=== PATIENT | male | born 1940 | race Caucasian/White ===

== ENCOUNTER → 2016-09-02 | Outpatient (CLI) | payer BC ==
[~2016-09-02] MED LIST: ASPCH81; MULT-506 PO; OXYC-57 PO; PRED20TA PO
--- NOTE | 2016-09-02 11:33 | DIAGNOSTIC IMAGING REPORT ---
LEFT LOWER EXTREMITY VENOUS DOPPLER CLINICAL HISTORY: Left leg edema. COMPARISON STUDY: No previous studies for comparison. TECHNIQUE: Sonography of the deep venous system of the left lower extremity was performed. Compression and augmentation were evaluated. FINDINGS: The left common femoral, superficial femoral and popliteal veins were compressible. Augmentation was normal. Flow was shown within the deep calf vessels. IMPRESSION: No evidence of deep venous thrombus within the left lower extremity. Electronically signed by: Demar Valdes M.D. 09/02/2016 11:31 AM Dictated Date/Time: 09/02/2016 11:30 AM
== END | disposition home or self-care (01) ==
LOC: C.ULTR 11:01
PROVIDERS: ATTEND Allergy & Immunology Allergy
DX: R60.0 Localized edema (principal)

== ENCOUNTER → 2016-10-04 | Outpatient (CLI) | payer BC ==
[2016-10-04 10:15] LABS: BASO % 1.1 %; BASO ABS # 0.05 K/uL (0-0.2); COMPLETE YES; HEMATOCRIT 45.3 % (42-52); IG% 0.4 %; LYMPH % 39.7 %; LYMPH ABS # 1.88 K/uL (1.2-3.4); MEAN CELL VOLUME 99.6 fL (80-100); MEAN CORPUSCULAR HEMOGLOBIN 34.3 pg (25-34); MEAN CORPUSCULAR HGB CONC 34.4 g/dl (32-36); MEAN PLATELET VOLUME 10.5 fL (7.4-10.4); MONO % 11.2 %; NEUT % 43.6 %; PLATELET COUNT 153 K/uL (130-400); RED BLOOD COUNT 4.55 M/uL (4.7-6.1); WHITE BLOOD COUNT 4.73 K/uL (4.8-10.8)
[2016-10-04 10:35] LABS: ESTIMATED AVERAGE GLUCOSE 105 mg/dl; HA1C FLAG Normal (Normal)
[2016-10-04 10:56] LABS: ALT/SGPT 21 U/L (12-78); BLOOD UREA NITROGEN 15 mg/dl (7-18); BUN/CREATININE RATIO 12.6 (10-20); CALCIUM 8.8 mg/dl (8.5-10.1); CARBON DIOXIDE 28 mmol/L (21-32); CHLORIDE 107 mmol/L (98-107); GLUCOSE 82 mg/dl (70-99); POTASSIUM 4.3 mmol/L (3.5-5.1); SODIUM 143 mmol/L (136-145)
[2016-10-04 11:07] LABS: ALB/GLOB RATIO 0.9 (0.9-2); ALKALINE PHOSPHATASE 70 U/L (45-117); AST/SGOT 15 U/L (15-37); CHOLESTEROL 170 mg/dl (0-200); CHOLESTEROL/HDL RATIO 3.5; HDL CHOLESTEROL 49 mg/dl; LDL CHOLESTEROL CALCULATED 108 mg/dl; PROSTATE SPECIFIC ANTIGEN 0.949 ng/ml (0.000-4.000); TRIGLYCERIDES 64 mg/dl (0-150); VERY LOW DENSITY LIPOPROT CALC 13 mg/dl
[2016-10-04 16:46] LABS: URINE APPEARANCE CLEAR (CLEAR); URINE BILIRUBIN NEG (NEG); URINE COLOR DK YELLOW; URINE EPITHELIAL CELL AUTO >30 /lpf (0-5); URINE NITRITE NEG (NEG); URINE SPECIFIC GRAVITY 1.025 (1.000-1.030); UROBILINOGEN NEG (NEG)
[2016-10-04 16:48] LABS: MANUAL MICROSCOPIC REQUIRED? NO; REVIEW REQ? NO
--- NOTE | 2016-10-08 09:22 | CODING QUERY MEDICAL NECESSITY ---
SUPPORTING DIAGNOSIS NEEDED A supporting diagnosis is required for the test/procedure performed on this patient in order for us to be reimbursed by the patient's insurance. Please provide a supporting diagnosis for the following test/procedure listed below next to the test name along with your signature. *If there is no additional diagnosis for this patient that would support the following test/procedure please document that below next to the test/procedure. Test(s)/Procedure(s) that require a supporting diagnosis: * GLYCATED HEMOGLOBIN DIAGNOSIS: * PSA DIAGNOSIS: * DOS: 10/04/16 Provider Signature: Date: Thank you Loraine Leavitt [facility] Information Management Once completed, please kindly fax back to [phone] For questions please call [phone]
== END | disposition home or self-care (01) ==
LOC: C.LAB1850 09:26
PROVIDERS: ATTEND Internal Medicine Pulmonary Disease
DX: Z00.00 Encounter for general adult medical examination without abnormal findings (principal); G62.9 Polyneuropathy, unspecified; I87.2 Venous insufficiency (chronic) (peripheral); R60.0 Localized edema; M70.60 Trochanteric bursitis, unspecified hip; Z12.5 Encounter for screening for malignant neoplasm of prostate

== ENCOUNTER → 2017-10-10 | Outpatient (CLI) | payer BC ==
[2017-10-10 12:14] LABS: BASO % 0.8 %; BASO ABS # 0.04 K/uL (0-0.2); EOS % 6.7 %; EOS ABS # 0.33 K/uL (0-0.5); HEMATOCRIT 47.6 % (42-52); HEMOGLOBIN 15.9 g/dL (14.0-18.0); IG# 0.01 K/uL (0.00-0.02); LYMPH % 38.1 %; LYMPH ABS # 1.88 K/uL (1.2-3.4); MEAN CELL VOLUME 101.3 fL (80-100); MEAN CORPUSCULAR HEMOGLOBIN 33.8 pg (25-34); MEAN CORPUSCULAR HGB CONC 33.4 g/dl (32-36); MEAN PLATELET VOLUME 10.7 fL (7.4-10.4); MONO % 8.7 %; MONO ABS # 0.43 K/uL (0.11-0.59); NEUT % 45.5 %; NEUT ABS # 2.25 K/uL (1.4-6.5); PLATELET COUNT 158 K/uL (130-400); RED CELL DISTRIBUTION WIDTH CV 13.6 % (11.5-14.5); RED CELL DISTRIBUTION WIDTH SD 50.6 fL (36.4-46.3); WHITE BLOOD COUNT 4.94 K/uL (4.8-10.8)
[2017-10-10 12:25] LABS: ALBUMIN 3.3 gm/dl (3.4-5.0); AST/SGOT 14 U/L (15-37); BLOOD UREA NITROGEN 14 mg/dl (7-18); CALCIUM 8.9 mg/dl (8.5-10.1); CARBON DIOXIDE 31 mmol/L (21-32); CREATININE 1.05 mg/dl (0.60-1.40); GLUCOSE 90 mg/dl (70-99); POTASSIUM 4.2 mmol/L (3.5-5.1); SODIUM 140 mmol/L (136-145)
[2017-10-10 12:30] LABS: ALKALINE PHOSPHATASE 97 U/L (45-117); ALT/SGPT 21 U/L (12-78); TOTAL PROTEIN 7.3 gm/dl (6.4-8.2)
[2017-10-10 12:49] LABS: HEMOGLOBIN A1C 5.3 % (4.5-5.6)
== END | disposition home or self-care (01) ==
LOC: C.LAB1850 09:51
PROVIDERS: ATTEND Internal Medicine Pulmonary Disease
DX: Z00.00 Encounter for general adult medical examination without abnormal findings (principal); G62.9 Polyneuropathy, unspecified; I87.2 Venous insufficiency (chronic) (peripheral); Z12.5 Encounter for screening for malignant neoplasm of prostate; R21 Rash and other nonspecific skin eruption

== ENCOUNTER 2023-01-05 12:52 | Inpatient (IN) ==
[2023-01-05] MEDS ORDERED: ACETAMINOPHEN 500 MG TAB PO STA (13:01)
[2023-01-05 13:32] LABS: Base Excess VBG 7.5 mEq/L; HCO3 VBG 33 mmol/L; Oxygen Saturation VBG < 60.0 %; PCO2 VBG 46 mmHg (38-50); PO2 VBG 21 mmHg; pH VBG 7.46 (7.36-7.41)
--- NOTE | 2023-01-05 13:39 | Electrocardiogram Report ---
Test Reason : Blood Pressure : / mmHG Vent. Rate : 099 BPM Atrial Rate : 099 BPM P-R Int : 190 ms QRS Dur : 108 ms QT Int : 332 ms P-R-T Axes : 014 -43 032 degrees QTc Int : 426 ms Normal sinus rhythm Left axis deviation Abnormal ECG When compared with ECG of 18-NOV-2011 11:55, No significant change was found Confirmed by Faheem Diop ([id number]) on 01/05/2023 1:38:41 PM Referred By: Confirmed By:Noel Diop
[2023-01-05 13:40] LABS: Basophils # (auto) 0.03 K/uL (0-0.2); Basophils % (auto) 0.4 %; Eosinophils # (auto) 0.01 K/uL (0-0.50); Eosinophils % (auto) 0.1 %; Hemoglobin 15.9 g/dl (14.0-18.0); Immature Granulocytes # (auto) 0.03 K/uL (0.01-0.20); Immature Granulocytes % (auto) 0.4 %; Lymphocytes # (auto) 0.64 K/uL (1.2-3.4); Lymphocytes % (auto) 9.1 %; Mean Corpuscular Hgb Conc 34.6 g/dL (32.0-36.0); Mean Corpuscular Volume 98.3 fL (80.0-100.0); Mean Platelet Volume 10.3 fL (9.4-12.4); Monocytes # (auto) 0.76 K/uL (0.11-0.59); Monocytes % (auto) 10.8 %; Neutrophils # (auto) 5.57 K/uL (1.40-6.50); Neutrophils % (auto) 79.2 %; Platelet Count 142 K/uL (130-400); RDW Standard Deviation 46.3 fL (36.4-46.3); Red Blood Count 4.68 M/uL (4.70-6.10); White Blood Count 7.04 K/ul (4.8-10.8)
--- NOTE | 2023-01-05 13:40 | Emergency Department Note ---
Impression & Plan Generalized muscle weakness, Delirium, Fever, Hypoxia, Fall, Elevated troponin I level, COVID-19 ED Provider Note NAME: SWETA PHILLIPS AGE: 82 SEX: M : 1940 ARRIVES VIA: Ambulance INFORMANT: Patient, ED PROVIDER(S): Hunter Barrera DO CHIEF COMPLAINT: Altered mental status HPI: Patient is an 82-year-old male who presented to the emergency department for an evaluation of altered mental status. The patient reportedly had a fall which was very minor. He became very weak and fell into a wall and then lowered himself to the ground. There was no reported head injury. There was no reported lower extremity pain. The patient himself does not offer any complaints but he seems very listless. He was found to have a fever upon triage vital signs. The patient himself states he has had a dry cough. He recently returned from a cruise. He denies having any nausea vomiting or diarrhea. He does complain of some diffuse abdominal pain. He denies having any headache or neck pain. ROS: See above HPI for pertinent positives & negatives. A total of 10 systems reviewed and were otherwise negative. PAST MEDICAL HISTORY: See Below PAST SURGICAL HISTORY: See Below FAMILY HISTORY: See Below SOCIAL HISTORY: See Below HOME MEDICATIONS: See Below ALLERGIES: See Below VITALS: See Below PHYSICAL EXAMINATION: GENERAL: The patient is awake to verbal commands. He is listless and answers questions slowly. He does not appear to be uncomfortable. EYES: The conjunctivae are clear. The pupils are round and reactive. EARS, NOSE, MOUTH AND THROAT: The nose is without any evidence of any deformity. Mucous membranes are dry. NECK: The neck is nontender and supple. RESPIRATORY: Normal respiratory effort is noted there is no evidence of wheezing rhonchi or rales CARDIOVASCULAR: Regular rate and rhythm noted there no murmurs rubs or gallops normal S1 normal S2. GASTROINTESTINAL: The abdomen is soft and distended. There is diffuse tenderness to palpation but no specific guarding rigidity. MUSCULOSKELETAL/EXTREMITIES: There is no evidence of gross deformity full range of motion is noted in the hips and shoulders. SKIN: Chronic venous stasis changes were noted. There is pedal edema bilaterally. Skin is warm and dry. NEUROLOGIC: Patient is awake to verbal commands. He is oriented to person as well as year. Strength is symmetric but diminished. MEDICAL DECISION MAKING: The patient is an 82-year-old male who presented to the emergency department after a fall. The patient had a ground-level fall but from description he actually became weak and slid down the wall. He had no significant trauma on my evaluation. The patient was found to have a fever. He was not speaking clearly at times. He was somewhat confused. He was treated with Tylenol and IV fluids. On reevaluation he was somewhat improved. He did complain of a cough which was nonproductive. The patient recently returned from a cruise. He had no GI complaints such as nausea vomiting or diarrhea. I discussed the patient's laboratory and radiographic studies with him. CT of the brain did not show any acute abnormality. After he was treated and his fever was improved he was speaking normally. Given the patient's findings CT of the chest was also obtained due to the degree of hypoxia. This does not appear to be consistent with pulmonary embolism. I do not feel the patient is safe for outpatient management at this time. For this reason I will [facility] T[facility] Nursing notes reviewed. Prior medical records reviewed Vital Signs: reviewed and remarkable for fever and hypoxia. Differential diagnosis: Infection, hypoglycemia, electrolyte abnormalities, overdose, toxicologic, cardiac sources, intracerebral event, neurologic, trauma, as well as other pathologies. ER treatment provided: See below Diagnostics interpreted by me: ECG: EKG was obtained in the emergency department. My interpretation is normal sinus rhythm at 99 bpm. There is no ectopy. There is no acute ST segment abnormalities noted. This was compared to a tracing from November 18, 2011. No changes were noted. Cardiac Monitoring: An order was placed for continuous cardiac monitoring. The monitor shows a rate of 98 bpm with sinus rhythm. Laboratory studies: As stated above and show below. Imaging studies: See below. Radiographic imaging was reviewed by myself Consultation(s): I discussed this case with Dr. Varma who is [facility]. Past Med/Surg History Medical History Chronic venous insufficiency Left thigh pain Osteoarthritis of left hip Peripheral neuropathy Stasis dermatitis Surgical History History of colonoscopy (~2019) History of foot surgery History of oral surgery History of tonsillectomy and adenoidectomy Family History Father Acute myocardial infarction Lung cancer Colon cancer Uncle Acute myocardial infarction Mother Brain cancer Brother Hypertension Tremor Social History Smoking Status: Never smoker marital status: Current Living Situation: Spouse Feels Safe at Home: Yes Allergies Allergies Allergy/AdvReac Type Severity Reaction Status Date / Time doxycycline Allergy Intermediate HIVES Verified 12/20/22 09:38 Home Meds Home Medications Medication Instructions Recorded Confirmed docusate sodium 100 mg capsule 100 mg PO DAILY 05/07/19 12/20/22 gabapentin 300 mg capsule 300 mg PO TID 01/05/23 01/05/23 Previous Rx's Medication Instructions Recorded triamterene 37.5 1 cap PO DAILY #90 caps 09/06/22 mg-hydrochlorothiazide 25 mg capsule nortriptyline 75 mg capsule See Rx Instructions .Route 09/17/22 .COMPLEX #90 caps Results & Data (ED) Vital Signs Vital Signs - 24 hr 01/05/23 13:14 01/05/23 12:31 01/05/23 12:31 Temperature 38.8 C H Temperature Source Oral Pulse Rate 98 H Pulse Rate [Apical] 97 H Pulse Rate from SpO2 Sensor Pulse Rhythm [Apical] Regular Respiratory Rate 22 Blood Pressure Blood Pressure [Left Arm] 168/104 H Blood Pressure Mean Blood Pressure Mean [Left Arm] 125 Pulse Oximetry 91 Oxygen Delivery Method Room Air Sepsis New/Unexplained Change in Mental Status Yes Sepsis Action Taken by Nursing No Action Required 01/05/23 13:31 01/05/23 14:16 01/05/23 13:05 Temperature Temperature Source Pulse Rate 102 H 98 H Pulse Rate [Apical] 91 H Pulse Rate from SpO2 Sensor 99 H Pulse Rhythm [Apical] Respiratory Rate 20 21 Blood Pressure Blood Pressure [Left Arm] 143/89 H Blood Pressure Mean Blood Pressure Mean [Left Arm] 107 Pulse Oximetry 93 94 92 Oxygen Delivery Method Room Air Room Air Sepsis New/Unexplained Change in Mental Status Sepsis Action Taken by Nursing 01/05/23 13:30 01/05/23 13:32 01/05/23 13:32 Temperature Temperature Source Pulse Rate 98 H 105 H Pulse Rate [Apical] Pulse Rate from SpO2 Sensor 93 H 104 H Pulse Rhythm [Apical] Respiratory Rate 19 20 Blood Pressure Blood Pressure [Left Arm] Blood Pressure Mean 199 Blood Pressure Mean [Left Arm] Pulse Oximetry 92 93 Oxygen Delivery Method Sepsis New/Unexplained Change in Mental Status Sepsis Action Taken by Nursing 01/05/23 14:13 01/05/23 14:13 01/05/23 14:30 Temperature Temperature Source Pulse Rate 95 H Pulse Rate [Apical] Pulse Rate from SpO2 Sensor 94 H 92 H Pulse Rhythm [Apical] Respiratory Rate 18 Blood Pressure 143/89 H Blood Pressure [Left Arm] Blood Pressure Mean 107 Blood Pressure Mean [Left Arm] Pulse Oximetry 88 L 92 Oxygen Delivery Method Sepsis New/Unexplained Change in Mental Status Sepsis Action Taken by Nursing 01/05/23 14:31 01/05/23 14:31 Temperature Temperature Source Pulse Rate 98 H Pulse Rate [Apical] Pulse Rate from SpO2 Sensor 98 H Pulse Rhythm [Apical] Respiratory Rate 24 Blood Pressure 113/84 Blood Pressure [Left Arm] Blood Pressure Mean 93 Blood Pressure Mean [Left Arm] Pulse Oximetry 80 L Oxygen Delivery Method Sepsis New/Unexplained Change in Mental Status Sepsis Action Taken by Snf Medications Current Medication List: was personally reviewed by me Laboratory Data Attestation: I reviewed the patient's lab results. 01/05/23 13:15 01/05/23 13:15 Lab Results 01/05/23 01/05/23 01/05/23 Range/Units 13:15 13:15 13:15 WBC 7.04 (4.8-10.8) K/ul RBC 4.68 L (4.70-6.10) M/uL Hgb 15.9 (14.0-18.0) g/dl Hct 46.0 (42.0-52.0) % MCV 98.3 (80.0-100.0) fL MCH 34.0 (25.0-34.0) pg MCHC 34.6 (32.0-36.0) g/dL RDW Std Deviation 46.3 (36.4-46.3) fL RDW Coeff of Jasiel 13.0 (11.5-14.5) % Plt Count 142 (130-400) K/uL MPV 10.3 (9.4-12.4) fL Immature Gran % (Auto) 0.4 % Neut % (Auto) 79.2 % Lymph % (Auto) 9.1 % [place] % (Auto) 10.8 % Eos % (Auto) 0.1 % Baso % (Auto) 0.4 % Neut # (Auto) 5.57 (1.40-6.50) K/uL Lymph # (Auto) 0.64 L (1.2-3.4) K/uL [place] # (Auto) 0.76 H (0.11-0.59) K/uL Eos # (Auto) 0.01 (0-0.50) K/uL Baso # (Auto) 0.03 (0-0.2) K/uL Immature Gran # (Auto) 0.03 (0.01-0.20) K/uL PT 12.6 H (9.0-12.0) Seconds INR 1.2 H (0.9-1.1) APTT 29.9 (21.0-31.0) Seconds PTT Ratio 1.1 VBG pH (7.36-7.41) VBG pCO2 (38-50) mmHg VBG pO2 mmHg VBG HCO3 mmol/L VBG O2 Saturation % VBG Base Excess mEq/L Sodium 137 (136-145) mmol/L Potassium 3.7 (3.5-5.1) mmol/L Chloride 100 (98-107) mmol/L Carbon Dioxide 30 (21-32) mmol/L Anion Gap 7 (3-11) BUN 18 (6-23) mg/dl Creatinine 1.04 (0.6-1.4) mg/dl Est Cr Clr Drug Dosing 55.7 ml/min Est GFR ( Amer) 77.7 ml/min Est GFR (Non-Af Amer) 67.0 ml/min BUN/Creatinine Ratio 17.3 (10-20) Glucose 89 (70-99(Fasting)) mg/dl Lactate (0.4-2.0) mmol/L Calcium 9.3 (8.6-10.3) mg/dl Magnesium 1.7 (1.7-2.4) mg/dl Total Bilirubin 0.7 (0.2-1.0) mg/dl Direct Bilirubin 0.2 (0-0.2) mg/dl AST 26 (13-39) U/L ALT 20 (7-52) U/L Alkaline Phosphatase 70 (34-104) U/L Ammonia (18-72) umol/L Troponin I High Sens 38.2 H (0-20) pg/ml Total Protein 7.2 (6.0-8.3) gm/dl Albumin 3.8 (3.4-5.0) gm/dl Procalcitonin (0-0.5) ng/ml Urine Color Urine Appearance (Clear) Urine pH (4.5-7.5) Ur Specific [place] (1.000-1.030) Urine Protein (Negative) Urine Glucose (UA) (Negative) Urine Ketones (Negative) Urine Blood (Negative) Urine Nitrite (Negative) Urine Bilirubin (Negative) Urine Urobilinogen (Negative) Ur Leukocyte Esterase (Negative) Urine WBC (Auto) (0-5) /hpf Urine RBC (Auto) (0-4) /hpf U Hyaline Cast (Auto) (0-5) /lpf U Epithel Cells (Auto) (0-5) /lpf Urine Bacteria (Auto) (Negative) Salicylates (3.0-30) mg/dl Urine Opiates Screen (Neg) Ur Methadone, Qual (Neg) Acetaminophen (10-30) ug/ml Urine Barbiturates (Neg) Ur Phencyclidine (PCP) (Neg) U Amphetamin/Meth Scrn (Neg) MDMA (Ecstasy) Screen (Neg) U Benzodiazepines Scrn (Neg) Ur Cocaine Metabolite (Neg) U Marijuana (THC) Screen (Neg) Ethyl Alcohol mg/dL (<10.0) mg/dl 01/05/23 01/05/23 01/05/23 Range/Units 13:15 13:15 13:15 WBC (4.8-10.8) K/ul RBC (4.70-6.10) M/uL Hgb (14.0-18.0) g/dl Hct (42.0-52.0) % MCV (80.0-100.0) fL MCH (25.0-34.0) pg MCHC (32.0-36.0) g/dL RDW Std Deviation (36.4-46.3) fL RDW Coeff of Jasiel (11.5-14.5) % Plt Count (130-400) K/uL MPV (9.4-12.4) fL Immature Gran % (Auto) % Neut % (Auto) % Lymph % (Auto) % [place] % (Auto) % Eos % (Auto) % Baso % (Auto) % Neut # (Auto) (1.40-6.50) K/uL Lymph # (Auto) (1.2-3.4) K/uL [place] # (Auto) (0.11-0.59) K/uL Eos # (Auto) (0-0.50) K/uL Baso # (Auto) (0-0.2) K/uL Immature Gran # (Auto) (0.01-0.20) K/uL PT (9.0-12.0) Seconds INR (0.9-1.1) APTT (21.0-31.0) Seconds PTT Ratio VBG pH 7.46 H (7.36-7.41) VBG pCO2 46 (38-50) mmHg VBG pO2 21 mmHg VBG HCO3 33 mmol/L VBG O2 Saturation < 60.0 % VBG Base Excess 7.5 mEq/L Sodium (136-145) mmol/L Potassium (3.5-5.1) mmol/L Chloride (98-107) mmol/L Carbon Dioxide (21-32) mmol/L Anion Gap (3-11) BUN (6-23) mg/dl Creatinine (0.6-1.4) mg/dl Est Cr Clr Drug Dosing ml/min Est GFR ( Amer) ml/min Est GFR (Non-Af Amer) ml/min BUN/Creatinine Ratio (10-20) Glucose (70-99(Fasting)) mg/dl Lactate 1.6 (0.4-2.0) mmol/L Calcium (8.6-10.3) mg/dl Magnesium (1.7-2.4) mg/dl Total Bilirubin (0.2-1.0) mg/dl Direct Bilirubin (0-0.2) mg/dl AST (13-39) U/L ALT (7-52) U/L Alkaline Phosphatase (34-104) U/L Ammonia (18-72) umol/L Troponin I High Sens (0-20) pg/ml Total Protein (6.0-8.3) gm/dl Albumin (3.4-5.0) gm/dl Procalcitonin < 0.05 (0-0.5) ng/ml Urine Color Urine Appearance (Clear) Urine pH (4.5-7.5) Ur Specific [place] (1.000-1.030) Urine Protein (Negative) Urine Glucose (UA) (Negative) Urine Ketones (Negative) Urine Blood (Negative) Urine Nitrite (Negative) Urine Bilirubin (Negative) Urine Urobilinogen (Negative) Ur Leukocyte Esterase (Negative) Urine WBC (Auto) (0-5) /hpf Urine RBC (Auto) (0-4) /hpf U Hyaline Cast (Auto) (0-5) /lpf U Epithel Cells (Auto) (0-5) /lpf Urine Bacteria (Auto) (Negative) Salicylates (3.0-30) mg/dl Urine Opiates Screen (Neg) Ur Methadone, Qual (Neg) Acetaminophen (10-30) ug/ml Urine Barbiturates (Neg) Ur Phencyclidine (PCP) (Neg) U Amphetamin/Meth Scrn (Neg) MDMA (Ecstasy) Screen (Neg) U Benzodiazepines Scrn (Neg) Ur Cocaine Metabolite (Neg) U Marijuana (THC) Screen (Neg) Ethyl Alcohol mg/dL (<10.0) mg/dl 01/05/23 01/05/23 01/05/23 Range/Units 13:15 13:15 13:15 WBC (4.8-10.8) K/ul RBC (4.70-6.10) M/uL Hgb (14.0-18.0) g/dl Hct (42.0-52.0) % MCV (80.0-100.0) fL MCH (25.0-34.0) pg MCHC (32.0-36.0) g/dL RDW Std Deviation (36.4-46.3) fL RDW Coeff of Jasiel (11.5-14.5) % Plt Count (130-400) K/uL MPV (9.4-12.4) fL Immature Gran % (Auto) % Neut % (Auto) % Lymph % (Auto) % [place] % (Auto) % Eos % (Auto) % Baso % (Auto) % Neut # (Auto) (1.40-6.50) K/uL Lymph # (Auto) (1.2-3.4) K/uL [place] # (Auto) (0.11-0.59) K/uL Eos # (Auto) (0-0.50) K/uL Baso # (Auto) (0-0.2) K/uL Immature Gran # (Auto) (0.01-0.20) K/uL PT (9.0-12.0) Seconds INR (0.9-1.1) APTT (21.0-31.0) Seconds PTT Ratio VBG pH (7.36-7.41) VBG pCO2 (38-50) mmHg VBG pO2 mmHg VBG HCO3 mmol/L VBG O2 Saturation % VBG Base Excess mEq/L Sodium (136-145) mmol/L Potassium (3.5-5.1) mmol/L Chloride (98-107) mmol/L Carbon Dioxide (21-32) mmol/L Anion Gap (3-11) BUN (6-23) mg/dl Creatinine (0.6-1.4) mg/dl Est Cr Clr Drug Dosing ml/min Est GFR ( Amer) ml/min Est GFR (Non-Af Amer) ml/min BUN/Creatinine Ratio (10-20) Glucose (70-99(Fasting)) mg/dl Lactate (0.4-2.0) mmol/L Calcium (8.6-10.3) mg/dl Magnesium (1.7-2.4) mg/dl Total Bilirubin (0.2-1.0) mg/dl Direct Bilirubin (0-0.2) mg/dl AST (13-39) U/L ALT (7-52) U/L Alkaline Phosphatase (34-104) U/L Ammonia 20.0 (18-72) umol/L Troponin I High Sens (0-20) pg/ml Total Protein (6.0-8.3) gm/dl Albumin (3.4-5.0) gm/dl Procalcitonin (0-0.5) ng/ml Urine Color Urine Appearance (Clear) Urine pH (4.5-7.5) Ur Specific [place] (1.000-1.030) Urine Protein (Negative) Urine Glucose (UA) (Negative) Urine Ketones (Negative) Urine Blood (Negative) Urine Nitrite (Negative) Urine Bilirubin (Negative) Urine Urobilinogen (Negative) Ur Leukocyte Esterase (Negative) Urine WBC (Auto) (0-5) /hpf Urine RBC (Auto) (0-4) /hpf U Hyaline Cast (Auto) (0-5) /lpf U Epithel Cells (Auto) (0-5) /lpf Urine Bacteria (Auto) (Negative) Salicylates < 3.0 L (3.0-30) mg/dl Urine Opiates Screen (Neg) Ur Methadone, Qual (Neg) Acetaminophen < 3 L (10-30) ug/ml Urine Barbiturates (Neg) Ur Phencyclidine (PCP) (Neg) U Amphetamin/Meth Scrn (Neg) MDMA (Ecstasy) Screen (Neg) U Benzodiazepines Scrn (Neg) Ur Cocaine Metabolite (Neg) U Marijuana (THC) Screen (Neg) Ethyl Alcohol mg/dL < 10.0 (<10.0) mg/dl 01/05/23 01/05/23 Range/Units 14:47 14:47 WBC (4.8-10.8) K/ul RBC (4.70-6.10) M/uL Hgb (14.0-18.0) g/dl Hct (42.0-52.0) % MCV (80.0-100.0) fL MCH (25.0-34.0) pg MCHC (32.0-36.0) g/dL RDW Std Deviation (36.4-46.3) fL RDW Coeff of Jaseil (11.5-14.5) % Plt Count (130-400) K/uL MPV (9.4-12.4) fL Immature Gran % (Auto) % Neut % (Auto) % Lymph % (Auto) % [place] % (Auto) % Eos % (Auto) % Baso % (Auto) % Neut # (Auto) (1.40-6.50) K/uL Lymph # (Auto) (1.2-3.4) K/uL [place] # (Auto) (0.11-0.59) K/uL Eos # (Auto) (0-0.50) K/uL Baso # (Auto) (0-0.2) K/uL Immature Gran # (Auto) (0.01-0.20) K/uL PT (9.0-12.0) Seconds INR (0.9-1.1) APTT (21.0-31.0) Seconds PTT Ratio VBG pH (7.36-7.41) VBG pCO2 (38-50) mmHg VBG pO2 mmHg VBG HCO3 mmol/L VBG O2 Saturation % VBG Base Excess mEq/L Sodium (136-145) mmol/L Potassium (3.5-5.1) mmol/L Chloride (98-107) mmol/L Carbon Dioxide (21-32) mmol/L Anion Gap (3-11) BUN (6-23) mg/dl Creatinine (0.6-1.4) mg/dl Est Cr Clr Drug Dosing ml/min Est GFR ( Amer) ml/min Est GFR (Non-Af Amer) ml/min BUN/Creatinine Ratio (10-20) Glucose (70-99(Fasting)) mg/dl Lactate (0.4-2.0) mmol/L Calcium (8.6-10.3) mg/dl Magnesium (1.7-2.4) mg/dl Total Bilirubin (0.2-1.0) mg/dl Direct Bilirubin (0-0.2) mg/dl AST (13-39) U/L ALT (7-52) U/L Alkaline Phosphatase (34-104) U/L Ammonia (18-72) umol/L Troponin I High Sens (0-20) pg/ml Total Protein (6.0-8.3) gm/dl Albumin (3.4-5.0) gm/dl Procalcitonin (0-0.5) ng/ml Urine Color Yellow Urine Appearance Clear (Clear) Urine pH 6.5 (4.5-7.5) Ur Specific [place] 1.017 (1.000-1.030) Urine Protein Trace H (Negative) Urine Glucose (UA) Negative (Negative) Urine Ketones 2+ H (Negative) Urine Blood 2+ H (Negative) Urine Nitrite Negative (Negative) Urine Bilirubin Negative (Negative) Urine Urobilinogen Negative (Negative) Ur Leukocyte Esterase Negative (Negative) Urine WBC (Auto) 1-5 (0-5) /hpf Urine RBC (Auto) 0-4 (0-4) /hpf U Hyaline Cast (Auto) 0 (0-5) /lpf U Epithel Cells (Auto) 10-20 H (0-5) /lpf Urine Bacteria (Auto) Negative (Negative) Salicylates (3.0-30) mg/dl Urine Opiates Screen Neg (Neg) Ur Methadone, Qual Neg (Neg) Acetaminophen (10-30) ug/ml Urine Barbiturates Neg (Neg) Ur Phencyclidine (PCP) Neg (Neg) U Amphetamin/Meth Scrn Neg (Neg) MDMA (Ecstasy) Screen Neg (Neg) U Benzodiazepines Scrn Neg (Neg) Ur Cocaine Metabolite Neg (Neg) U Marijuana (THC) Screen Neg (Neg) Ethyl Alcohol mg/dL (<10.0) mg/dl Administered Medications Discontinued Medications Acetaminophen (Acetaminophen 500 Mg Tab) 1,000 mg PO NOW STA Stop: 01/05/23 13:02 Last Admin: 01/05/23 13:55 Dose: 1,000 mg Documented By: CLAUDIA Ioversol (Optiray 320 500ml) 98 ml IV ONCE ONE Stop: 01/05/23 16:11 Last Admin: 01/05/23 16:06 Dose: 98 ml Documented By: ROSA Imaging Data Attestation: I personally reviewed and interpreted this imaging study as follows: My Impression: 1 view chest x-ray was obtained in the emergency department. My interpretation is no free air, no definite infiltrate, final report below. CT of the head was obtained in the emergency department. My interpretation is no intracranial hemorrhage, no mass effect, final report below. Radiologist's Impression: Abdomen/Pelvis CT 01/05/23 13:[address] WITHOUT CONTRAST HISTORY: Acute onset abdominal pain with fever fever, distended TECHNIQUE: Multiaxial CT images of the abdomen and pelvis were performed without contrast. A dose lowering technique was utilized adhering to the principles of ALARA. COMPARISON STUDY: 02/09/2008 FINDINGS: Limited exam secondary to predominantly positioning and lack of c ontrast. Cardiac megaly with diffuse dilation of the ascending thoracic aorta, 5 cm. Coronary artery calcifications. Mild bibasilar atelectasis. No pneumatosis or pneumoperitoneum. The unenhanced spleen, moderately atrophic pancreas, gallbladder and adrenal glands are unremarkable. 4.6 cm right hepatic lobe cyst. No hydronephrosis. Mild cortical thinning of the kidneys. Prostatomegaly. Small fat filled inguinal hernias. Partial distention of the urinary bladder. Atheros clerosis of the aorta. There is no lymphadenopathy. No retroperitoneal hematoma. No bowel obstruction or bowel wall thickening. Colonic diverticulosis. Moderate fecal retention. Normal appendix. No ascites or mesenteric inflammation. Degenerative changes of the spine, pelvis and hips. No acute fracture identified. IMPRESSION: 1. Limited exam without acute intra-abdominal or intrapelvic abnormality. 2. No acute fracture. 3. Incidental findings as above. ACT 112: Negative or not required by law. The above report was generated using voice recognition software. It may contain grammatical, syntax or spelling errors. Electronically signed by: Kodak Lawson M.D. 01/05/2023 2:[address] 01/05/23 13:01 CT cervical spine wo con CLINICAL HISTORY: 82 years-old Male with fall. Acute head and neck injury status post fall COMPARISON: None. TECHNIQUE: Multiple axial CT images of the cervical spine were obtained without contrast. A dose lowering technique was utilized adhering to the principles of ALARA. FINDINGS: Multilevel degenerative changes. Nuchal ligament calcifications. Ill- defined linear lucency is noted within the spinous process at C6 on image 33 series 501. The cervical soft tissues appear unremarkable. The visualized lung apices appear clear. IMPRESSION: 1. No acute displaced fracture identified. 2. Ill-defined lucency of the C6 spinous process is likely artifactual. A subtle acute nondisplaced fracture could appear similarly. ACT 112: Negative or not required by law. The above report was generated using voice recognition software. It may contain grammatical, syntax or spelling errors. Electronically signed by: Kodak Lawson M.D. 01/05/2023 2:25 PM Chest X-Ray 01/05/23 13:01 XR chest 1V portable HISTORY: 82 years-old Male Sepsis give sepsis COMPARISON: 12/20/2022 TECHNIQUE: AP view of the chest FINDINGS: Cardiac silhouette is enlarged. No pneumothorax, pleural effusion, airspace consolidation or pulmonary edema. Degenerative changes of the shoulders and spine. IMPRESSION: No acute process. ACT 112: Negative or not required by law. The above report was generated using voice recognition software. It may contain grammatical, syntax or spelling errors. Electronically signed by: Kodak Lawson M.D. 01/05/2023 2:[address] 01/05/23 13:01 CT SCAN OF THE BRAIN WITHOUT IV CONTRAST CLINICAL HISTORY: Falls. COMPARISON STUDY: No priors. TECHNIQUE: Unenhanced axial CT scan of the brain is performed from the vertex to the skull base. A dose lowering technique was utilized adhering to the principles of ALARA. CT DOSE: 2301.23 mGy.cm FINDINGS: Brain parenchyma: There is age-related involutional change noting moderate subcortical and periventricular microangiopathic disease. There is no hemorrhage, mass effect, or evidence of acute territorial ischemia by CT criteria. Perez-white matter differentiation is preserved. No extra-axial fluid collection is seen. Ventricles, sulci, cisterns: Prominent secondary to involutional change. Intracranial vasculature: There is atherosclerotic calcification of the cavernous carotid and vertebral arteries. Calvarium: The skeletal structures are osteopenic. No depressed calvarial fracture is seen. Sinuses and mastoids: There are air-fluid levels within the maxillary sinuses. The remaining visualized paranasal sinuses are clear. The mastoid air cells are well pneumatized. Orbits: The bony orbits are grossly intact. There are bilateral ocular lens implants. IMPRESSION: There is no hemorrhage, mass effect, or evidence of acute territoria l ischemia by CT criteria. ACT 112: Negative or not required by law. Electronically signed by: Zach Bruce M.D. 01/05/2023 2:23 PM Chest CTA 01/05/23 15:26 CT angio chest PE protocol CLINICAL HISTORY: PE TECHNIQUE: Multidetector row helical CT of the chest was performed with angiographic protocol. Coronal and sagittal reformations were obtained. Coronal and sagittal MIPS were obtained from the axial data set and were submitted for review. Automated dose lowering techniques and/or adjustment according to patient size were utilized for this exam. CT DOSE: 804.87 mGy.cm Comparison: None available at the time of this dictation. FINDINGS: Lungs and pleura: Atelectasis versus scarring is seen in the dependent portions of the lungs. There is a 5 mm pulmonary nodule in the right lower lobe (series 4 image 82). Heart and pericardium: Heart size is normal. No pericardial effusion. Vessels: No evidence of pulmonary embolism. The ascending aorta measures 47 mm in diameter. The pulmonary trunk measures 34 mm. Mediastinum and fercho: Unremarkable. Chest wall and lower neck: Unremarkable. Abdomen: Hepatic cyst is seen. Bones: Degenerative changes of the thoracic spine. Old healed rib fractures are seen. IMPRESSION: 1. No pulmonary embolus is seen. 2. Pulmonary nodules measure up to 5 mm. According to Fleischner criteria, no follow-up is required in low risk patients, in high-risk patients, a 12 month follow-up CT can be optionally performed. 3. Aortic aneurysm. Pulmonary hypertension. ACT 112: Negative or not required by law. Electronically signed by: Isiah Rodriguez M.D. 01/05/2023 4:23 PM Discharge Plan Visit Data Chief Complaint: Fall Stated Complaint: FALL ED Provider: Hunter Barrera Discharge Problem: Generalized muscle weakness, Delirium, Fever, Hypoxia, Fall, Elevated troponin I level, COVID-19 Forms Stand Alone Forms: [employer] Prescriptions Prescriptions: No Action triamterene-hydrochlorothiazid 37.5-25 mg capsule 1 cap PO DAILY Qty: 90 3RF nortriptyline 75 mg capsule See Rx Instructions .ROUTE .COMPLEX Qty: 90 3RF Dose Instruction: TAKE 1 CAPSULE BY MOUTH 2-3 HOURS BEFORE BEDTIME Rx Instructions: TAKE 1 CAPSULE BY MOUTH 2-3 HOURS BEFORE BEDTIME docusate sodium 100 mg capsule 100 mg PO DAILY gabapentin 300 mg capsule 300 mg PO TID Referrals Referrals: Joshua Allen MD [Primary Care Provider] -
[2023-01-05 13:51] LABS: INR 1.2 (0.9-1.1); Partial Thromboplastin Ratio 1.1; Partial Thromboplastin Time 29.9 Seconds (21.0-31.0); Prothrombin Time 12.6 Seconds (9.0-12.0)
[2023-01-05 13:57] LABS: Albumin Level 3.8 gm/dl (3.4-5.0); Bilirubin Direct 0.2 mg/dl (0-0.2); Bilirubin,Total 0.7 mg/dl (0.2-1.0); Calcium 9.3 mg/dl (8.6-10.3); Magnesium 1.7 mg/dl (1.7-2.4); Potassium 3.7 mmol/L (3.5-5.1)
[2023-01-05 14:03] LABS: Acetaminophen < 3 ug/ml (10-30); BUN Creatinine Ratio 17.3 (10-20); Creatinine Clr Calc Pharmacy 55.7 ml/min; Est GFR (African American) 77.7 ml/min; Salicylate < 3.0 mg/dl (3.0-30); Total Protein 7.2 gm/dl (6.0-8.3)
[2023-01-05 14:20] LABS: Influenza A virus by PCR Negative (Neg); Influenza B virus by PCR Negative (Neg); RSV by PCR Negative (Neg)
--- NOTE | 2023-01-05 14:25 | CT Scan Report ---
CT SCAN OF THE BRAIN WITHOUT IV CONTRAST CLINICAL HISTORY: Falls. COMPARISON STUDY: No priors. TECHNIQUE: Unenhanced axial CT scan of the brain is performed from the vertex to the skull base. A do se lowering technique was utilized adhering to the principles of ALARA. CT DOSE: 2301.23 mGy.cm FINDINGS: Brain parenchyma: There is age-related involutional change noting moderate subcortical and periventri cular microangiopathic disease. There is no hemorrhage, mass effect, or evidence of acute territorial ischemia by CT criteria. Perez-white matter differentiation is preserved. No extra-axial fluid collec tion is seen. Ventricles, sulci, cisterns: Prominent secondary to involutional change. Intracranial vasculature: There is atherosclerotic calcification of the cavernous carotid and vertebr al arteries. Calvarium: The skeletal structures are osteopenic. No depressed calvarial fracture is seen. Sinuses and mastoids: There are air-fluid levels within the maxillary sinuses. The remaining visualiz ed paranasal sinuses are clear. The mastoid air cells are well pneumatized. Orbits: The bony orbits are grossly intact. There are bilateral ocular lens implants. IMPRESSION: There is no hemorrhage, mass effect, or evidence of acute territorial ischemia by CT daniel islas. ACT 112: Negative or not required by law. Electronically signed by: Zach Bruce M.D. 01/05/2023 2:23 PM
[2023-01-05 14:26] LABS: Troponin I High Sensitivity 38.2 pg/ml (0-20)
--- NOTE | 2023-01-05 14:26 | CT Scan Report ---
CT cervical spine wo con CLINICAL HISTORY: 82 years-old Male with fall. Acute head and neck injury status post fall COMPARISON: None. TECHNIQUE: Multiple axial CT images of the cervical spine were obtained without contrast. A dose low ering technique was utilized adhering to the principles of ALARA. FINDINGS: Multilevel degenerative changes. Nuchal ligament calcifications. Ill-defined linear lucency is noted within the spinous process at C6 on image 33 series 501. The cervical soft tissues appear u nremarkable. The visualized lung apices appear clear. IMPRESSION: 1. No acute displaced fracture identified. 2. Ill-defined lucency of the C6 spinous process is likely artifactual. A subtle acute nondisplaced f racture could appear similarly. ACT 112: Negative or not required by law. The above report was generated using voice recognition software. It may contain grammatical, syntax o r spelling errors. Electronically signed by: Kodak Lawson M.D. 01/05/2023 2:25 PM
--- NOTE | 2023-01-05 14:42 | CT Scan Report ---
ABDOMEN AND PELVIS CT WITHOUT CONTRAST HISTORY: Acute onset abdominal pain with fever fever, distended TECHNIQUE: Multiaxial CT images of the abdomen and pelvis were performed without contrast. A dose lo wering technique was utilized adhering to the principles of ALARA. COMPARISON STUDY: 02/09/2008 FINDINGS: Limited exam secondary to predominantly positioning and lack of contrast. Cardiac megaly wi th diffuse dilation of the ascending thoracic aorta, 5 cm. Coronary artery calcifications. Mild bibas ilar atelectasis. No pneumatosis or pneumoperitoneum. The unenhanced spleen, moderately atrophic panc reas, gallbladder and adrenal glands are unremarkable. 4.6 cm right hepatic lobe cyst. No hydronephrosis. Mild cortical thinning of the kidneys. Prostatomegaly. Small fat filled inguinal h ernias. Partial distention of the urinary bladder. Atherosclerosis of the aorta. There is no lymphade nopathy. No retroperitoneal hematoma. No bowel obstruction or bowel wall thickening. Colonic diverticulosis. Moderate fecal retention. Norm al appendix. No ascites or mesenteric inflammation. Degenerative changes of the spine, pelvis and hip s. No acute fracture identified. IMPRESSION: 1. Limited exam without acute intra-abdominal or intrapelvic abnormality. 2. No acute fracture. 3. Incidental findings as above. ACT 112: Negative or not required by law. The above report was generated using voice recognition software. It may contain grammatical, syntax o r spelling errors. Electronically signed by: Kodak Lawson M.D. 01/05/2023 2:41 PM
--- NOTE | 2023-01-05 14:44 | XRay Report ---
XR chest 1V portable HISTORY: 82 years-old Male Sepsis give sepsis COMPARISON: 12/20/2022 TECHNIQUE: AP view of the chest FINDINGS: Cardiac silhouette is enlarged. No pneumothorax, pleural effusion, airspace consolidation or pulmonar y edema. Degenerative changes of the shoulders and spine. IMPRESSION: No acute process. ACT 112: Negative or not required by law. The above report was generated using voice recognition software. It may contain grammatical, syntax o r spelling errors. Electronically signed by: Kodak Lawson M.D. 01/05/2023 2:43 PM
[2023-01-05 15:09] LABS: Appearance Urine Clear (Clear); Bacteria Urine Automated Negative (Negative); Bilirubin Urine Negative (Negative); Blood Urine 2+ (Negative); Cast Urine Automated 0 /lpf (0-5); Color Urine Yellow; Glucose Urine UA Negative (Negative); Ketones Urine 2+ (Negative); Leukocyte Esterase Urine Negative (Negative); Nitrite Urine Negative (Negative); Protein Urine Trace (Negative); RBC Urine Automated 0-4 /hpf (0-4); Specific Gravity Urine 1.017 (1.000-1.030); Urobilinogen Urine Negative (Negative); pH Urine 6.5 (4.5-7.5)
[2023-01-05 15:38] LABS: Amphetamines+Metham, Urine Neg (Neg); Barbiturates, Urine Neg (Neg); Benzodiazepine, Urine Neg (Neg); Cocaine, Urine Neg (Neg); MDMA (Ecstacy), Urine Neg (Neg); Methadone, Urine Neg (Neg); Opiate, Urine Neg (Neg); Phencyclidine, Urine Neg (Neg)
[2023-01-05] MEDS ORDERED: OPTIRAY 320 500ml IV ONE (16:10)
--- NOTE | 2023-01-05 16:24 | CT Scan Report ---
CT angio chest PE protocol CLINICAL HISTORY: PE TECHNIQUE: Multidetector row helical CT of the chest was performed with angiographic protocol. Hernandez l and sagittal reformations were obtained. Coronal and sagittal MIPS were obtained from the axial glenn a set and were submitted for review. Automated dose lowering techniques and/or adjustment according to patient size were utilized for this exam. CT DOSE: 804.87 mGy.cm Comparison: None available at the time of this dictation. FINDINGS: Lungs and pleura: Atelectasis versus scarring is seen in the dependent portions of the lungs. There i s a 5 mm pulmonary nodule in the right lower lobe (series 4 image 82). Heart and pericardium: Heart size is normal. No pericardial effusion. Vessels: No evidence of pulmonary embolism. The ascending aorta measures 47 mm in diameter. The pulmo nary trunk measures 34 mm. Mediastinum and fercho: Unremarkable. Chest wall and lower neck: Unremarkable. Abdomen: Hepatic cyst is seen. Bones: Degenerative changes of the thoracic spine. Old healed rib fractures are seen. IMPRESSION: 1. No pulmonary embolus is seen. 2. Pulmonary nodules measure up to 5 mm. According to Fleischner criteria, no follow-up is required in low risk patients, in high-risk patients, a 12 month follow-up CT can be optionally performed. 3. Aortic aneurysm. Pulmonary hypertension. ACT 112: Negative or not required by law. Electronically signed by: Isiah Rodriguez M.D. 01/05/2023 4:23 PM
[2023-01-05] MEDS ORDERED: cefTRIAXone SODIUM 2,000 MG/70 ML BAG IV STA (16:38)
[2023-01-05] MEDS ORDERED: SODIUM CHLORIDE 0.9% 1000ML 1,000 ML IV ONE (16:39)
[2023-01-05 16:54] LABS: SARS CoV2 RNA(COVID-19) Ceph POSITIVE (Negative)
[2023-01-05] MEDS ORDERED: dexAMETHasone**PF** 10 MG/ML VIAL IV ONE (16:54)
[2023-01-05 18:06] LABS: C Reactive Protein 4.54 mg/dl (0-0.5)
[2023-01-05 18:20] LABS: Troponin I High Sensitivity 91.5 pg/ml (0-20)
--- NOTE | 2023-01-05 18:53 | History & Physical Report ---
Date of Service January 05, 2023 Assessment & Plan (1) COVID-19: Plan: Vaccinated and boosted First day of symptoms 01/03/23 O2 sats > 94%, main symptom of nasal congestion but suspect this is a causing his generalized weakness Start Paxlovid - medications sent to outpatient pharmacy and discussed with his to have family member bring this in to the hospital (2) Generalized muscle weakness: Plan: Suspect due to COVID-19 as above No one sided weakness on exam to suspect stroke PT/OT (3) Fall: Plan: Suspect due to generalized weakness +/- hypotension with diuretics in setting of acute COVID illness Holding diuretics IV fluids overnight PT/OT assessments tomorrow (4) Rhabdomyolysis: Plan: Mild LR @ 125ml/hr Repeat CK in AM (5) Peripheral neuropathy: Plan: Continue nortriptyline and gabapentin (6) Elevated troponin: Plan: Increased troponin 38.2 -> 91.5 - no chest pain or shortness of breath to suggest acute coronary syndrome. Will continue to trend overnight and if significant rise consider echocardiogram to assess for wall motion abnormalities Plan VTE Prophylaxis - Lovenox 40mg SQ daily Diet - regular Disposition - admit to med/surg Admission and Anticipated Discharge Date Admission Date: January 05, 2023 History of Present Illness Chief Complaint: Generalized weakness, fall Primary Care Provider: Joshua Allen MD Timothy Smith is an 82 year old male who presents to the ER following a fall earlier today. He reports 2 days of upper respiratory illness with nasal congestion and post nasal drip. No fever, chills, shortness of breath, sinus pain or cough. He recently returned from a cruise over the weekend where his was sick with a respiratory infection for the last few days of the drip. He has been getting generally weaker on both sides of his body. No change in speech, vision or hearing. Today at a unknown time while walking he felt dizzy and lightheaded and started to fall to the side. He did not hit his head or loose consciousness. He fell into the wall and lowered himself to the ground but could not get back up therefore EMS were called. In the ER SARS-COV-2 PCR was positive. He was referred to medicine for admission and ongoing management of altered mental staus, fever, hypoxia and elevated troponin. When seen he is on room air with O2 says 94%. Allergies Allergy/AdvReac Type Severity Reaction Status Date / Time doxycycline Allergy Intermediate HIVES Verified 12/20/22 09:38 Home Medications Medication Instructions Recorded Confirmed Type docusate sodium 100 mg capsule 100 mg PO DAILY 05/07/19 01/05/23 History triamterene 37.5 1 cap PO DAILY #90 caps 09/06/22 01/05/23 Rx mg-hydrochlorothiazide 25 mg capsule nortriptyline 75 mg capsule See Rx Instructions .Route 09/17/22 01/05/23 Rx .COMPLEX #90 caps aspirin 81 mg tablet,delayed 81 mg PO DAILY 01/05/23 01/05/23 History release fluoride (sodium) 1.1 % dental 1 applic PO HS 01/05/23 01/05/23 History cream (Denta 5000 Plus) gabapentin 300 mg capsule 300 mg PO TID 01/05/23 01/05/23 History multivitamin 1 tab PO DAILY 01/05/23 01/05/23 History nirmatrelvir 300 mg (150 mg See Rx Instructions PO .COMPLEX 01/05/23 Rx x2)-ritonavir 100 mg tablet,dose #30 ea pack(EUA) (Paxlovid) Past Med/Surg History Medical History Chronic venous insufficiency Left thigh pain Osteoarthritis of left hip Peripheral neuropathy Stasis dermatitis Surgical History History of colonoscopy (~2019) History of foot surgery History of oral surgery History of tonsillectomy and adenoidectomy Family History Father Acute myocardial infarction Lung cancer Colon cancer Uncle Acute myocardial infarction Mother Brain cancer Brother Hypertension Tremor Social History Smoking Status: Former smoker Second Hand Exposure: No; Do You Dip or Chew Tobacco: No; Hx Alcohol Use: Yes Hx Substance Use: No Preferred Language: Albanian Communication Ability: Effective Undercutter Required: No Beliefs That Will Affect Care: None marital status: Current Living Situation: Spouse Other Information That Helps Us Care for You: No Feels Safe at Home: Yes Safety Concerns: Feels Safe At This Time Assistive Devices: Cane and Glasses Review of Systems Review of Systems: All systems reviewed & are unremarkable except as noted in HPI & below Physical Exam Constitutional: WD/WN, vitals as above Eyes: PERRL, conjunctivae normal, anicteric sclerae ENMT: external ear and nose normal, oropharynx normal Neck: trachea midline, no thyromegaly Respiratory: normal respiratory effort, lungs clear to auscultation Cardiovascular: RRR, no murmur, no edema Gastrointestinal (Abdomen): normal bowel sounds, soft, nontender, no hepatosplenomegaly Musculoskeletal: no cyanosis or clubbing, extremities motor strength 5/5 Skin: no rashes, warm and dry Neurologic: moves all extremities and awake; no focal motor deficits and not confused Speech / Cognition: normal speech Motor/Sensory: no tremor and no pronator drift Coordination: normal [id number] test Psychiatric: A+Ox3, euthymic affect Results & Data Results & Data Vital Signs (Past 12 Hours) Vital Signs Temp Pulse Pulse Resp BP BP Pulse Ox 01/05/23 17:30 77 19 110/74 94 01/05/23 17:00 79 19 132/78 93 01/05/23 16:30 79 20 128/77 91 01/05/23 15:31 92 H 17 107/63 89 L 01/05/23 17:03 78 01/05/23 14:31 113/84 01/05/23 14:31 98 H 24 80 L 01/05/23 14:30 95 H 18 92 01/05/23 14:13 88 L 01/05/23 14:13 143/89 H 01/05/23 13:32 105 H 20 93 01/05/23 13:30 98 H 19 92 01/05/23 13:05 98 H 21 92 01/05/23 14:16 91 H 20 143/89 H 94 01/05/23 13:31 102 H 93 01/05/23 12:31 38.8 C H 97 H 22 168/104 H 91 01/05/23 13:14 98 H O2 Del Method 01/05/23 17:30 01/05/23 17:00 01/05/23 16:30 01/05/23 15:31 01/05/23 17:03 01/05/23 14:31 01/05/23 14:31 01/05/23 14:30 01/05/23 14:13 01/05/23 14:13 01/05/23 13:32 01/05/23 13:30 01/05/23 13:05 01/05/23 14:16 Room Air 01/05/23 13:31 Room Air 01/05/23 12:31 Room Air 01/05/23 13:14 Laboratory Results Abnormal lab results 01/05/23 01/05/23 01/05/23 Range/Units 13:15 13:15 13:15 RBC 4.68 L (4.70-6.10) M/uL Lymph # (Auto) 0.64 L (1.2-3.4) K/uL Curry # (Auto) 0.76 H (0.11-0.59) K/uL PT 12.6 H (9.0-12.0) Seconds INR 1.2 H (0.9-1.1) VBG pH (7.36-7.41) Total Creatine Kinase (30-223) U/L Troponin I High Sens 38.2 H (0-20) pg/ml C-Reactive Protein (0-0.5) mg/dl Urine Protein (Negative) Urine Ketones (Negative) Urine Blood (Negative) U Epithel Cells (Auto) (0-5) /lpf Salicylates (3.0-30) mg/dl Acetaminophen (10-30) ug/ml SARS-CoV-2 (PCR) (Negative) 01/05/23 01/05/23 01/05/23 Range/Units 13:15 13:15 13:20 RBC (4.70-6.10) M/uL Lymph # (Auto) (1.2-3.4) K/uL Curry # (Auto) (0.11-0.59) K/uL PT (9.0-12.0) Seconds INR (0.9-1.1) VBG pH 7.46 H (7.36-7.41) Total Creatine Kinase (30-223) U/L Troponin I High Sens (0-20) pg/ml C-Reactive Protein (0-0.5) mg/dl Urine Protein (Negative) Urine Ketones (Negative) Urine Blood (Negative) U Epithel Cells (Auto) (0-5) /lpf Salicylates < 3.0 L (3.0-30) mg/dl Acetaminophen < 3 L (10-30) ug/ml SARS-CoV-2 (PCR) POSITIVE A* (Negative) 01/05/23 01/05/23 Range/Units 14:47 17:35 RBC (4.70-6.10) M/uL Lymph # (Auto) (1.2-3.4) K/uL Curry # (Auto) (0.11-0.59) K/uL PT (9.0-12.0) Seconds INR (0.9-1.1) VBG pH (7.36-7.41) Total Creatine Kinase 1028 H (30-223) U/L Troponin I High Sens 91.5 H* D (0-20) pg/ml C-Reactive Protein 4.54 H (0-0.5) mg/dl Urine Protein Trace H (Negative) Urine Ketones 2+ H (Negative) Urine Blood 2+ H (Negative) U Epithel Cells (Auto) 10-20 H (0-5) /lpf Salicylates (3.0-30) mg/dl Acetaminophen (10-30) ug/ml SARS-CoV-2 (PCR) (Negative) Diagnostic Findings CT SCAN OF THE BRAIN WITHOUT IV CONTRAST CLINICAL HISTORY: Falls. COMPARISON STUDY: No priors. TECHNIQUE: Unenhanced axial CT scan of the brain is performed from the vertex to the skull base. A dose lowering technique was utilized adhering to the principles of ALARA. CT DOSE: 2301.23 mGy.cm FINDINGS: Brain parenchyma: There is age-related involutional change noting moderate subcortical and periventricular microangiopathic disease. There is no hemorrhage, mass effect, or evidence of acute territorial ischemia by CT criteria. Perez-white matter differentiation is preserved. No extra-axial fluid collection is seen. Ventricles, sulci, cisterns: Prominent secondary to involutional change. Intracranial vasculature: There is atherosclerotic calcification of the cavernous carotid and vertebral arteries. Calvarium: The skeletal structures are osteopenic. No depressed calvarial fracture is seen. Sinuses and mastoids: There are air-fluid levels within the maxillary sinuses. The remaining visualized paranasal sinuses are clear. The mastoid air cells are well pneumatized. Orbits: The bony orbits are grossly intact. There are bilateral ocular lens implants. IMPRESSION: There is no hemorrhage, mass effect, or evidence of acute territorial ischemia by CT criteria. CT cervical spine wo con CLINICAL HISTORY: 82 years-old Male with fall. Acute head and neck injury status post fall COMPARISON: None. TECHNIQUE: Multiple axial CT images of the cervical spine were obtained without contrast. A dose lowering technique was utilized adhering to the principles of ALARA. FINDINGS: Multilevel degenerative changes. Nuchal ligament calcifications. Ill- defined linear lucency is noted within the spinous process at C6 on image 33 series 501. The cervical soft tissues appear unremarkable. The visualized lung apices appear clear. IMPRESSION: 1. No acute displaced fracture identified. 2. Ill-defined lucency of the C6 spinous process is likely artifactual. A subtle acute nondisplaced fracture could appear similarly. XR chest 1V portable HISTORY: 82 years-old Male Sepsis give sepsis COMPARISON: 12/20/2022 TECHNIQUE: AP view of the chest FINDINGS: Cardiac silhouette is enlarged. No pneumothorax, pleural effusion, airspace consolidation or pulmonary edema. Degenerative changes of the shoulders and spine. IMPRESSION: No acute process. CT angio chest PE protocol CLINICAL HISTORY: PE TECHNIQUE: Multidetector row helical CT of the chest was performed with angiographic protocol. Coronal and sagittal reformations were obtained. Coronal and sagittal MIPS were obtained from the axial data set and were submitted for review. Automated dose lowering techniques and/or adjustment according to patient size were utilized for this exam. CT DOSE: 804.87 mGy.cm Comparison: None available at the time of this dictation. FINDINGS: Lungs and pleura: Atelectasis versus scarring is seen in the dependent portions of the lungs. There is a 5 mm pulmonary nodule in the right lower lobe (series 4 image 82). Heart and pericardium: Heart size is normal. No pericardial effusion. Vessels: No evidence of pulmonary embolism. The ascending aorta measures 47 mm in diameter. The pulmonary trunk measures 34 mm. Mediastinum and fercho: Unremarkable. Chest wall and lower neck: Unremarkable. Abdomen: Hepatic cyst is seen. Bones: Degenerative changes of the thoracic spine. Old healed rib fractures are seen. IMPRESSION: 1. No pulmonary embolus is seen. 2. Pulmonary nodules measure up to 5 mm. According to Fleischner criteria, no follow-up is required in low risk patients, in high-risk patients, a 12 month follow-up CT can be optionally performed. 3. Aortic aneurysm. Pulmonary hypertension. ABDOMEN AND PELVIS CT WITHOUT CONTRAST HISTORY: Acute onset abdominal pain with fever fever, distended TECHNIQUE: Multiaxial CT images of the abdomen and pelvis were performed without contrast. A dose lowering technique was utilized adhering to the principles of ALARA. COMPARISON STUDY: 02/09/2008 FINDINGS: Limited exam secondary to predominantly positioning and lack of contrast. Cardiac megaly with diffuse dilation of the ascending thoracic aorta, 5 cm. Coronary artery calcifications. Mild bibasilar atelectasis. No pneumatosis or pneumoperitoneum. The unenhanced spleen, moderately atrophic pancreas, gallbladder and adrenal glands are unremarkable. 4.6 cm right hepatic lobe cyst. No hydronephrosis. Mild cortical thinning of the kidneys. Prostatomegaly. Small fat filled inguinal hernias. Partial distention of the urinary bladder. Atherosclerosis of the aorta. There is no lymphadenopathy. No retroperitoneal hematoma. No bowel obstruction or bowel wall thickening. Colonic diverticulosis. Moderate fecal retention. Normal appendix. No ascites or mesenteric inflammation. Degenerative changes of the spine, pelvis and hips. No acute fracture identified. IMPRESSION: 1. Limited exam without acute intra-abdominal or intrapelvic abnormality. 2. No acute fracture. 3. Incidental findings as above. Medications Administered ER Medications Given: Acetaminophen 1000mg PO IV fluids, dexamethasone and ceftriaxone orders all discontinued ECG Rate (beats per minute): 99 Rhythm: normal sinus Findings: + left axis deviation; no acute ischemic change Comparison ECG Date: from (November 18, 2011) Code Status & VTE Plan Code Status Full VTE Prophylaxis Plan VTE Prophylaxis will be ordered: Yes PG Care Time/CCT Total # of Minutes Spent Total Time Spent with Patient: Total time spent is greater than 50% in coordination of care (as documented) at patient's floor/unit and/or counseling patient: Coding Level of Care Code 14880 INT INP/OBS CARE 3/75MIN Diagnoses COVID-19 U07.1 Generalized muscle weakness M62.81 Fall W19.XXXA Encounter type: initial encounter Rhabdomyolysis M62.82 Peripheral neuropathy G62.9 Elevated troponin R77.8 (3) Fall Encounter type: initial encounter Qualified Code(s): W19.XXXA - Unspecified fall, initial encounter
[2023-01-05] MEDS ORDERED: LACTATED RINGER'S 1,000 ML IV ONE (19:04)
[2023-01-05] MEDS ORDERED: ONDANSETRON INJ 2 MG/ML 2 ML VIAL IV PRN (21:03)
[2023-01-05] MEDS ORDERED: LACTATED RINGER'S 1,000 ML IV SCH (21:03)
[2023-01-05] MEDS ORDERED: ACETAMINOPHEN 325 MG TAB PO PRN (21:03)
--- NOTE | 2023-01-05 21:19 | Ultrasound Report ---
Exam(s): US VENOUS LEFT LOWER EXTREMITY EXAM: US Duplex Left Lower Extremity Veins CLINICAL HISTORY: Reason for exam: leg swelling ?DVT. TECHNIQUE: Real-time duplex ultrasound scan of the left lower extremity veins integrating B-mode two-dimensional vascular structure, Doppler spectral analysis, color flow Doppler imaging and compression. COMPARISON: No relevant prior studies available. FINDINGS: Deep veins: Unremarkable. The visualized deep veins of the left lower extremity are compressible with color flow. No visualized thrombus. Superficial veins: Unremarkable. Soft tissues: No acute findings. IMPRESSION: No DVT within the left lower extremity. Electronically signed by: Teofilo Smith MD 01/05/23 21:18 PM
[2023-01-05] MEDS: GABAPENTIN 300 MG CAP PO SCH (22:01)
[2023-01-05] MEDS: NORTRIPTYLINE HCL 25 MG CAP PO SCH (22:01)
[2023-01-05] MEDS: ENOXAPARIN INJ 40 MG/0.4 ML SYR SQ SCH (22:42)
[2023-01-06 06:51] LABS: Basophils # (auto) 0.02 K/uL (0-0.2); Basophils % (auto) 0.4 %; Eosinophils # (auto) 0.04 K/uL (0-0.50); Eosinophils % (auto) 0.8 %; Hematocrit (blood only) 39.7 % (42.0-52.0); Hemoglobin 13.6 g/dl (14.0-18.0); Immature Granulocytes # (auto) 0.02 K/uL (0.01-0.20); Immature Granulocytes % (auto) 0.4 %; Lymphocytes # (auto) 1.37 K/uL (1.2-3.4); Lymphocytes % (auto) 27.1 %; Mean Corpuscular Hemoglobin 34.1 pg (25.0-34.0); Mean Corpuscular Hgb Conc 34.3 g/dL (32.0-36.0); Mean Corpuscular Volume 99.5 fL (80.0-100.0); Monocytes # (auto) 0.75 K/uL (0.11-0.59); Monocytes % (auto) 14.9 %; Neutrophils # (auto) 2.85 K/uL (1.40-6.50); Neutrophils % (auto) 56.4 %; Platelet Count 127 K/uL (130-400); RDW Coefficient of Variation 13.2 % (11.5-14.5); RDW Standard Deviation 48.2 fL (36.4-46.3); Red Blood Count 3.99 M/uL (4.70-6.10); White Blood Count 5.05 K/ul (4.8-10.8)
[2023-01-06 07:02] LABS: BUN Creatinine Ratio 17.7 (10-20); Calcium 8.4 mg/dl (8.6-10.3); Creatinine Clr Calc Pharmacy 60.3 ml/min; Est GFR (African American) 85.6 ml/min; Est GFR (Non-African American) 73.8 ml/min; Potassium 3.5 mmol/L (3.5-5.1)
[2023-01-06] MEDS: ASPIRIN 81 MG ECTAB PO SCH (08:46)
[2023-01-06] MEDS: MULTIVITAMIN TAB PO SCH (08:46)
[2023-01-06] MEDS: DOCUSATE SODIUM 100 MG CAP PO SCH (08:46)
[2023-01-06] MEDS: GABAPENTIN 300 MG CAP PO SCH ×3 (08:46→20:48)
[2023-01-06] MEDS: dexAMETHasone 1 MG TAB PO SCH (10:29)
[2023-01-06] MEDS: NIRMATRELVIR/RITONAVIR 1 EA TAB PO SCH ×2 (10:29→20:49)
[2023-01-06 14:26] LABS: A calco-baum cmplx NotReported Not Detected (NotDetected); Bact fragilis Not Reported Not Detected (NotDetected); C auris Not Reported Not Detected (NotDetected); Calbicans Not Reported Not Detected (NotDetected); Candida glabrata Not Reported Not Detected (NotDetected); Candida krusei Not Reported Not Detected (NotDetected); Cneoformans/gatti Not Reported Not Detected (NotDetected); Cparapsilosis Not Reported Not Detected (NotDetected); Ctropicalis Not Reported Not Detected (NotDetected); E cloacae compx Not Reported Not Detected (NotDetected); Efaecalis Not Reported Not Detected (NotDetected); Efaecium Not Reported Not Detected (NotDetected); Enterobacterales Not Reported Not Detected (NotDetected); Escherichia coli Not Reported Not Detected (NotDetected); H influenzae Not Reported Not Detected (NotDetected); K aerogenes Not Reported Not Detected (NotDetected); Koxytoca Not Reported Not Detected (NotDetected); Kpneumoniae grp Not Reported Not Detected (NotDetected); Lmonocyt Not Reported Not Detected (NotDetected); N meningitidis Not Reported Not Detected (NotDetected); P aeruginosa Not Reported Not Detected (NotDetected); Proteus spp Not Reported Not Detected (NotDetected); Salmonella spp Not Reported Not Detected (NotDetected); Smarcescens Not Reported Not Detected (NotDetected); Staph lugdunensis Not Reported Not Detected (NotDetected); Staph spp. Not Reported DETECTED (NotDetected); Staphaureus Not Reported Not Detected (NotDetected); Staphepi Not Reported DETECTED (NotDetected); Staphylococcus spp. DETECTED (NotDetected); Stenmaltophilia Not Reported Not Detected (NotDetected); Strep agal(GrpB) Not Reported Not Detected (NotDetected); Strep pneum Not Reported Not Detected (NotDetected); Strep pyog (GrpA) Not Reported Not Detected (NotDetected); Strep spp Not Reported Not Detected (NotDetected); mecAC Resistant Gene Not Detected (NotDetected)
[2023-01-06 14:32] LABS: Staphylococcus epidermidis DETECTED (NotDetected)
--- NOTE | 2023-01-06 14:48 | Hospitalist Progress Note ---
Date of Service January 06, 2023 Assessment & Plan (1) COVID-19: Plan: Vaccinated and boosted First day of symptoms 01/03/23 Presented with weakness, fall, nasal congestion. Pulse ox was less than 88% initially and was given Decadron in the ER, now improved to 95% on room air Chest CT negative for pneumonia but does have some pulmonary nodules -Continue Paxlovid brought in from home x5-day course -Start dexamethasone 6 mg p.o. once daily and complete 10-day course -Supportive care -No further IV fluids needed -PT/OT consults placed-recommend home (2) Generalized muscle weakness: Plan: Suspect due to COVID-19 as above, plus mild rhabdomyolysis from fall and being down on the ground for a bit No one sided weakness on exam to suspect stroke PT/OT recommend home (3) Fall: Plan: Suspect due to generalized weakness +/- hypotension with diuretics in setting of acute COVID illness Holding diuretics IV fluids given initially now discontinued PT/OT assessments as above recommend able to return home Had CT head, cervical spine, chest/abdomen/pelvis-no fractures. Possible subtle lucency in C6 spinous process versus artifact. Patient denies any acute pain in that area (4) Rhabdomyolysis: Plan: Mild, CK stable from previous at 1161 Was given IV fluids-none further needed Follow CK and BMP in the morning (5) Peripheral neuropathy: Plan: Continue nortriptyline and gabapentin (6) Elevated troponin: Plan: Demand ischemia Increased troponin 38.2 -> 91.5 and now back down to 62- no chest pain or short ness of breath to suggest acute coronary syndrome. ECG without ischemic changes No further evaluation needed (7) Pulmonary nodule: Plan: CT chest shows 5 mm pulmonary nodule in the right lower lobe-given he is a former smoker, he could have an optional 12-month follow-up CT scan (8) Thoracic aortic aneurysm: Plan: 4.7 cm a sending aortic aneurysm noted on CT scan Follow-up as an outpatient Plan VTE Prophylaxis - Lovenox 40mg SQ daily Diet - regular Disposition -continued stay on medical/surgical unit, likely discharge to home tomorrow if feeling a bit stronger Admission and Anticipated Discharge Date Admission Date: January 05, 2023 Subjective Patient feeling generally weak all over. Slightly better than yesterday. Denies shortness of breath, denies cough. Does have chronic nasal congestion no worse than usual. No pain anywhere. He has chronic neck pain no different than usual. Physical Exam Constitutional: WD/WN, vitals as above Neck: trachea midline, no thyromegaly Respiratory: normal respiratory effort, lungs clear to auscultation Cardiovascular: RRR, no murmur, no edema Chest (Breasts): Chest: normal inspection of chest Gastrointestinal (Abdomen): normal bowel sounds, soft, nontender, no hepatosplenomegaly Musculoskeletal: Extremities: extremities normal to inspection; no cyanosis and no clubbing Skin: + rash (Rash of chronic venous stasis on bilateral legs) Neurologic: moves all extremities and awake; no focal motor deficits Psychiatric: A+Ox3, euthymic affect Results & Data Results & Data Vital Signs (Past 12 Hours) Vital Signs Temp Pulse Resp BP Pulse Ox O2 Del Method 01/06/23 08:37 36.7 C 88 18 100/66 94 Room Air Laboratory Results CBC, BMP, troponin, CK reviewed Blood cultures 1/4 bottles with Staphylococcus epidermidis-most likely contaminant Diagnostic Findings Left lower extremity venous Doppler reviewed-negative PG Care Time/CCT Total # of Minutes Spent Total Time Spent with Patient: Total time spent is greater than 50% in coordination of care (as documented) at patient's floor/unit and/or counseling patient: Coding Level of Care Code 56533 SUB INP/OBS CARE 2/35MIN Diagnoses COVID-19 U07.1 Generalized muscle weakness M62.81 Fall W19.XXXA Encounter type: initial encounter Rhabdomyolysis M62.82 Peripheral neuropathy G62.9 Elevated troponin R77.8 Pulmonary nodule R91.1 Thoracic aortic aneurysm I71.20 (3) Fall Encounter type: initial encounter Qualified Code(s): W19.XXXA - Unspecified fall, initial encounter
[2023-01-06] MEDS: NORTRIPTYLINE HCL 25 MG CAP PO SCH (20:49)
[2023-01-06] MEDS: ENOXAPARIN INJ 40 MG/0.4 ML SYR SQ SCH (20:51)
[2023-01-06] MEDS ORDERED: NIRMATRELVIR/RITONAVIR 1 EA TAB PO SCH (21:00)
[2023-01-07 06:29] LABS: Hematocrit (blood only) 44.2 % (42.0-52.0); Immature Granulocytes # (auto) 0.02 K/uL (0.01-0.20); Immature Granulocytes % (auto) 0.6 %; Lymphocytes # (auto) 0.67 K/uL (1.2-3.4); Mean Corpuscular Hemoglobin 33.2 pg (25.0-34.0); Mean Corpuscular Hgb Conc 33.9 g/dL (32.0-36.0); Mean Corpuscular Volume 97.8 fL (80.0-100.0); Mean Platelet Volume 10.2 fL (9.4-12.4); Monocytes # (auto) 0.24 K/uL (0.11-0.59); Monocytes % (auto) 7.2 %; Neutrophils # (auto) 2.42 K/uL (1.40-6.50); Neutrophils % (auto) 72.2 %; Platelet Count 133 K/uL (130-400); RDW Coefficient of Variation 12.7 % (11.5-14.5); RDW Standard Deviation 45.5 fL (36.4-46.3); Red Blood Count 4.52 M/uL (4.70-6.10); White Blood Count 3.35 K/ul (4.8-10.8)
[2023-01-07 06:59] LABS: Albumin Level 2.9 gm/dl (3.4-5.0); BUN Creatinine Ratio 19.4 (10-20); Bilirubin,Total 0.5 mg/dl (0.2-1.0); C Reactive Protein 8.39 mg/dl (0-0.5); Calcium 8.7 mg/dl (8.6-10.3); Creatinine Clr Calc Pharmacy 62.3 ml/min; Est GFR (African American) 88.9 ml/min; Est GFR (Non-African American) 76.7 ml/min; Globulin 2.9 gm/dl (2.5-4.0); Magnesium 1.9 mg/dl (1.7-2.4); Potassium 3.6 mmol/L (3.5-5.1); Total Protein 5.8 gm/dl (6.0-8.3)
[2023-01-07] MEDS: GABAPENTIN 300 MG CAP PO SCH ×2 (08:38→14:36)
[2023-01-07] MEDS: NIRMATRELVIR/RITONAVIR 1 EA TAB PO SCH (08:38)
[2023-01-07] MEDS: DOCUSATE SODIUM 100 MG CAP PO SCH (08:39)
[2023-01-07] MEDS: dexAMETHasone 1 MG TAB PO SCH (08:39)
[2023-01-07] MEDS: MULTIVITAMIN TAB PO SCH (08:39)
[2023-01-07] MEDS: ASPIRIN 81 MG ECTAB PO SCH (08:39)
--- NOTE | 2023-01-07 13:03 | Discharge Summary ---
Discharge Summary Date of Service January 07, 2023 Notes For Next Care Provider Medication Changes From Visit Dexamethasone 6mg po daily x 2 more days Paxlovid 1 tab twice a day to finish 5 day course Admission HPI Per Admitting Provider Timothy Smith is an 82 year old male who presents to the ER following a fall earlier today. He reports 2 days of upper respiratory illness with nasal congestion and post nasal drip. No fever, chills, shortness of breath, sinus pain or cough. He recently returned from a cruise over the weekend where his was sick with a respiratory infection for the last few days of the drip. He has been getting generally weaker on both sides of his body. No change in speech, vision or hearing. Today at a unknown time while walking he felt dizzy and lightheaded and started to fall to the side. He did not hit his head or loose consciousness. He fell into the wall and lowered himself to the ground but could not get back up therefore EMS were called. In the ER SARS-COV-2 PCR was positive. He was referred to medicine for admission and ongoing management of altered mental staus, fever, hypoxia and elevated troponin. When seen he is on room air with O2 says 94%. Principal Dx & Hospital Course #1 = Principal Diagnosis (1) COVID-19: Vaccinated and boosted First day of symptoms 01/03/23 Presented with weakness, fall, nasal congestion. Pulse ox was less than 88% initially and was given Decadron in the ER, now improved to 96% on room air Chest CT negative for pneumonia but does have a pulmonary nodule -Continue Paxlovid brought in from home x5-day course -continue dexamethasone 6 mg p.o. once daily and complete 5-day course -Supportive care -No further IV fluids needed -PT/OT consults placed-recommend home Much improved at time of discharge (2) Generalized muscle weakness: Suspect due to COVID-19 as above, plus mild rhabdomyolysis from fall and being down on the ground for a bit No one sided weakness on exam to suspect stroke PT/OT recommend home Doing much better, ambulating with walker in room independently, feels better, r habdo resolving (3) Fall: Suspect due to generalized weakness +/- hypotension with diuretics in setting of acute COVID illness Holding diuretics but can restart on discharge IV fluids given initially now discontinued PT/OT assessments as above recommend able to return home Had CT head, cervical spine, chest/abdomen/pelvis-no fractures. Possible subtle lucency in C6 spinous process versus artifact. Patient denies any acute pain in that area (4) Rhabdomyolysis: Mild, CK went from 1161 noemi ot 400s Was given IV fluids-none further needed reoslved 2/2 fall and COVID (5) Peripheral neuropathy: Continue nortriptyline and gabapentin (6) Elevated troponin: Demand ischemia Increased troponin 38.2 -> 91.5 and now back down to 62- no chest pain or shortness of breath to suggest acute coronary syndrome. ECG without ischemic changes No further evaluation needed (7) Pulmonary nodule: CT chest shows 5 mm pulmonary nodule in the right lower lobe-given he is a former smoker, he could have an optional 12-month follow-up CT scan-discussed with pt (8) Thoracic aortic aneurysm: 4.7 cm a sending aortic aneurysm noted on CT scan Follow-up as an outpatient BP control discussed with patient Plan VTE Prophylaxis - Lovenox 40mg SQ daily Diet - regular Disposition -dc to home without any services needed Discharge Exam Constitutional WD/WN, vitals as above Neck trachea midline, no thyromegaly Respiratory normal respiratory effort, lungs clear to auscultation Cardiovascular RRR, no murmur, no edema Chest (Breasts) Chest: normal inspection of chest Gastrointestinal (Abdomen) normal bowel sounds, soft, nontender, no hepatosplenomegaly Musculoskeletal Extremities: extremities normal to inspection; no cyanosis and no clubbing Skin + rash (Rash of chronic venous stasis on bilateral legs) Neurologic moves all extremities and awake; no focal motor deficits Psychiatric A+Ox3, euthymic affect Updated Medication List Medication Instructions Recorded Confirmed Type docusate sodium 100 mg capsule 100 mg PO DAILY 05/07/19 01/05/23 History triamterene 37.5 1 cap PO DAILY #90 caps 09/06/22 01/05/23 Rx mg-hydrochlorothiazide 25 mg capsule nortriptyline 75 mg capsule See Rx Instructions .Route 09/17/22 01/05/23 Rx .COMPLEX #90 caps aspirin 81 mg tablet,delayed 81 mg PO DAILY 01/05/23 01/05/23 History release fluoride (sodium) 1.1 % dental 1 applic PO HS 01/05/23 01/05/23 History cream (Denta 5000 Plus) gabapentin 300 mg capsule 300 mg PO TID 01/05/23 01/05/23 History multivitamin 1 tab PO DAILY 01/05/23 01/05/23 History nirmatrelvir 300 mg (150 mg See Rx Instructions PO .COMPLEX 01/05/23 Rx x2)-ritonavir 100 mg tablet,dose #30 ea pack(EUA) (Paxlovid) dexamethasone 6 mg tablet 6 mg PO DAILY #2 tabs 01/07/23 Rx Hospital Stay Data Consultations 01/05/23 16:48 ED Decision to Admit Stat Diagnostic Imagining Performed 01/05/23 13:01 CT abd pelvis wo con Stat CT cervical spine wo con Stat CT head/brain wo con Stat 01/05/23 15:26 CT angio chest PE protocol Stat 01/05/23 18:27 US venous doppler LE LT Urgent Pending Results Patient Have Any Pending Studies at Discharge: No Discharge Instructions Given to Patient (Per Discharging Provider) Please finish out 2 more days of the steroid called dexamethasone. Finish out the course of Paxlovid as prescribed. Incidentally, you were found to have a small pulmonary nodule and a thoracic ascending aortic aneurysm as we discussed. You will need to have your PCP follow up on these as an outpatient. Total Time Total Time Spent Total Time Spent (In Minutes): 35 min Coding Level of Care Code 94032 INP/OBS DISCH >30 MIN Diagnoses COVID-19 U07.1 Generalized muscle weakness M62.81 Fall W19.XXXA Encounter type: initial encounter Rhabdomyolysis M62.82 Peripheral neuropathy G62.9 Elevated troponin R77.8 Pulmonary nodule R91.1 Thoracic aortic aneurysm I71.20
== END 2023-01-07 15:49 | disposition home or self-care (01) | DRG 178 ==
LOC: ED 12:52 → SUATTDRO 17:28 → 3E 17:28

== ENCOUNTER 2024-02-29 05:28 | Observation (INO) ==
--- NOTE | 2024-01-31 08:49 | PAT Medication Instructions ---
Medication Instructions Date of Service January 31, 2024 Home Medications Medication Instructions Recorded metoprolol succinate 25 mg 12.5 mg (1/2 x 25 mg) PO DAILY #45 02/16/23 tablet,extended release 24 hr tabs triamterene 37.5 1 cap PO DAILY #90 caps 09/19/23 mg-hydrochlorothiazide 25 mg capsule nortriptyline 75 mg capsule See Rx Instructions .Route 09/21/23 .COMPLEX #90 caps gabapentin 300 mg capsule See Rx Instructions .Route 12/14/23 .COMPLEX #270 caps atorvastatin 20 mg tablet 20 mg PO DAILY #90 tabs 01/18/24 docusate sodium 100 mg capsule 100 mg PO DAILY aspirin 81 mg tablet,delayed release 81 mg PO DAILY fluoride (sodium) 1.1 % dental cream (Denta 5000 Plus) 1 applic PO HS multivitamin 1 tab PO DAILY metoprolol succinate 25 mg tablet,extended release 24 hr 12.5 mg (1/2 x 25 mg) PO DAILY triamterene 37.5 mg-hydrochlorothiazide 25 mg capsule 1 cap PO DAILY nortriptyline 75 mg capsule See Rx Instructions .Route .COMPLEX gabapentin 300 mg capsule See Rx Instructions .Route .COMPLEX atorvastatin 20 mg tablet 20 mg PO DAILY cyanocobalamin (vitamin B-12) 250 mcg tablet (Vitamin B-12) 250 mcg PO DAILY psyllium husk 0.4 gram capsule (Metamucil) 0.4 g PO DAILY PRN Constipation ASK your prescriber and surgeon aspirin 81 mg tablet,delayed release 81 mg PO DAILY DO NOT take the morning of surgery docusate sodium 100 mg capsule 100 mg PO DAILY multivitamin 1 tab PO DAILY triamterene 37.5 mg-hydrochlorothiazide 25 mg capsule 1 cap PO DAILY cyanocobalamin (vitamin B-12) 250 mcg tablet (Vitamin B-12) 250 mcg PO DAILY psyllium husk 0.4 gram capsule (Metamucil) 0.4 g PO DAILY PRN Constipation Take morning of surgery With a small sip of water, OTHERWISE NOTHING TO EAT OR DRINK AFTER MIDNIGHT: metoprolol succinate 25 mg tablet,extended release 24 hr 12.5 mg (1/2 x 25 mg) PO DAILY gabapentin 300 mg capsule See Rx Instructions .Route .COMPLEX atorvastatin 20 mg tablet 20 mg PO DAILY Take evening before surgery fluoride (sodium) 1.1 % dental cream (Denta 5000 Plus) 1 applic PO HS nortriptyline 75 mg capsule See Rx Instructions .Route .COMPLEX gabapentin 300 mg capsule See Rx Instructions .Route .COMPLEX psyllium husk 0.4 gram capsule (Metamucil) 0.4 g PO DAILY PRN Constipation (if needed) Other Notes If you have any questions please call us at [phone] or [phone] or [phone] or [phone]
--- NOTE | 2024-02-06 14:55 | Anesthesiology Consultation ---
Date of Service February 06, 2024 Assessment & Plan (1) Encounter for pre-operative examination: - Infectious disease screening: Per assessment on 02/06/24: No known recent infectious disease contacts or current infectious disease symptoms. - Outpatient joint assessment: Pt currently scheduled for inpatient pathway. If surgeon requests review for outpatient joint pathway, patient is not recommended candidate for outpatient joint program from anesthesia standpoint based on available information. - PCP/Pulmonary visit (02/14/24): "Pt. is an 83 y.o. male w/multiple medical problems who presents for preoperative clearance. He is scheduled for a left hip replacement on 02/29/[address] Calix. He has a prior h/o DVT treated with Coumadin s/p hammertoe surgery approximately 10 years ago. He tolerates anesthesia. He is scheduled to see Cardiology tomorrow for preoperative cardiac clearance. From medical standpoint he is cleared for left hip replacement on 02/29/2024. Case reviewed with Dr. Allen. I discussed with the patient today that Dr. Allen is transitioning away from primary care practice and as result he will need to establish care with a new PCP. A list of providers within [facility] accepting new primary care patient's was provided today for the patient." - Cardiology visit (02/15/24): "His ascending thoracic aortic aneurysm was incidentally diagnosed on CTAP and CTA of the Chest on 01/05/23 when he was hospitalized with COVID complicated by hypoxia, altered mental status, and a mild elevation of his high sensitivity troponin I which was most likely demand ischemia. His most recent Chest CT dated 11/10/23 showed his ascending thoracic aortic aneurysm now measures 5 cm -- so we will make a referral to cardiothoracic/vascular surgery. Patient had an Echocardiogram 08/29/23 that showed normal LV size, wall motion, and systolic function, mild concentric LVH, LVEF 60% to 65%, mildly dilated LA, mild AI, moderate aortic root dilation measuring 4.7 cm, moderately dilated ascending aorta measuring 4.9 cm. His limited functional status makes it difficult to assess for limiting cardiopulmon arben symptoms. As he has this hip replacement coming up and his ascending thoracic aortic aneurysm has reached 5 cm in diameter -- which will require surgical intervention -- and he has coronary artery calcifications -- I will recommend a Dobutamine Stress Echocardiogram prior to his upcoming surgeries/procedures. The patient's blood pressure is well controlled 112/70 pulse is 58 an regular, and he is maintained on Toprol XL 12.5 mg daily due to his aneurysm and coronary artery calcifications.. Following hip replacement, gradually increase aerobic activities as tolerated.. Refer to Cardiothoracic surgery regarding ascending thoracic aortic aneurysm.. [place]. Brandt [place] [facility] We will make further recommendations regarding his upcoming surgery pending the outcome of his DSE." - Cardiology noted that final recommendations would be made after review of DSE. Patient had DSE 02/17/24 that showed moderately dilated aortic root/ascending aorta. Ascending aorta diameter 4.4 cm (no change on direct comparison to 08/29/2023 study). Awaiting final cardiology recommendations ([facility] cardio). Chart Review Chart Review: Patient seen in Pre Admission Testing Teaching & Discussion Pre-Anesthesia Teaching/Discussion Notes: Instructed NPO after midnight before surgery,except medications with 15 cc of water. Medication instructions provided according to the PAT guidelines. History Surgery Operation Date: 02/29/24 08:50 Proposed Procedures p Left Total Hip Arthroplasty With Dual Mobility Implant - Dirk Grimaldo MD Height/Weight Height: 5 ft 9 in Weight: 100.1 kg Allergies Allergy/AdvReac Type Severity Reaction Status Date / Time doxycycline Allergy Intermediate Hives Verified 02/15/24 13:46 Medications Home Medications Medication Instructions Recorded Confirmed Last Taken docusate sodium 100 mg capsule 100 mg PO DAILY 05/07/19 02/15/24 Unknown aspirin 81 mg tablet,delayed 81 mg PO DAILY 01/05/23 02/15/24 Unknown release fluoride (sodium) 1.1 % dental 1 applic PO HS 01/05/23 02/15/24 Unknown cream (Denta 5000 Plus) multivitamin 1 tab PO DAILY 01/05/23 02/15/24 Unknown triamterene 37.5 1 cap PO DAILY #90 caps 09/19/23 02/15/24 Unknown mg-hydrochlorothiazide 25 mg capsule nortriptyline 75 mg capsule See Rx Instructions .Route 09/21/23 02/15/24 Unknown .COMPLEX #90 caps gabapentin 300 mg capsule See Rx Instructions .Route 12/14/23 02/15/24 Unknown .COMPLEX #270 caps atorvastatin 20 mg tablet 20 mg PO DAILY #90 tabs 01/18/24 02/15/24 Unknown cyanocobalamin (vitamin B-12) 250 250 mcg PO DAILY 01/30/24 02/15/24 Unknown mcg tablet (Vitamin B-12) psyllium husk 0.4 gram capsule 0.4 g PO DAILY PRN Constipation 01/30/24 02/15/24 Unknown (Metamucil) metoprolol succinate 25 mg 12.5 mg (1/2 x 25 mg) PO DAILY #45 02/06/24 02/15/24 Unknown tablet,extended release 24 hr tabs Past Medical History Medical History Chronic stasis dermatitis Osteoarthritis Dyslipidemia HTN (hypertension) History of COVID-19 (12/2022) Chronic venous insufficiency Coronary artery calcification Peripheral neuropathy Thoracic aortic aneurysm Pulmonary nodule Exercise / Class Metabolic Activity III < 4 Walking/Shop/Light housework Past Family History Family History Father Acute myocardial infarction Lung cancer Colon cancer Uncle Acute myocardial infarction Mother Brain cancer Brother Hypertension Tremor Past Surgical History Surgical History History of foot surgery History of colonoscopy History of oral surgery History of tonsillectomy and adenoidectomy Past Anesthesia History No Hx of Anesthesia Complications and No Family Hx of Anesthesia Complications History of PONV No Hx of PONV and No Hx of Motion Sickness Social History Smoking Status: Former smoker Do You Dip or Chew Tobacco: No Smoking End Date: Quit 25 years ago Hx Alcohol Use: Yes Alcohol type: beer, wine and hard liquor alcohol intake frequency: a few times a week Hx Substance Use: No substance use type: does not use Review of Systems Patient denies chest pain, shortness of breath, fever, chills, cough, wheezing, palpitations. Physical Exam Vital Signs BP 107/69 P 72 TEMP 98.5 SP02 96%RA RESP 18 Physical Mildly decreased cervical extension range of motion. Full TMJ range of motion. TMD > 3.5 finger breaths Mallampati Score 3 Dentition: upper/lower partials Lungs: clear throughout to auscultation Cardiac: regular rate and rhythm, no murmurs noted Spine: normal Carotid arteries: negative bruit Extremities: no LE edema Lab Results Anesthesia Preop Results Results Anesthesia Widget: WBC 4.74 K/ul (4.8-10.8) L 02/06/24 Hgb 13.2 g/dl (14.0-18.0) L 02/06/24 Hct 40.0 % (42.0-52.0) L 02/06/24 Plt 153 K/uL (130-400) 02/06/24 Na 139 mmol/L (136-145) 02/06/24 K 4.1 mmol/L (3.5-5.1) 02/06/24 Cl 106 mmol/L (98-107) 02/06/24 CO2 31 mmol/L (21-32) 02/06/24 BUN 27 mg/dl (6-23) H 02/06/24 Creat 1.16 mg/dl (0.6-1.4) 02/06/24 Glucose Level 97 mg/dl (70-99(Fasting)) 02/06/24 PT 11.9 Seconds (9.0-12.0) 02/06/24 PTT 28 Seconds (21-31) 02/06/24 INR 1.1 (0.9-1.1) 02/06/24 Urine Color Dark Yellow 02/06/24 Urine Appearance Cloudy (Clear) A 02/06/24 Urine pH 6.0 (4.5-7.5) 02/06/24 Urine Specific [place] 1.020 (1.000-1.030) 02/06/24 Urine Protein Negative (Negative) 02/06/24 Urine Glucose (UA) Negative (Negative) 02/06/24 Urine Ketones Trace (Negative) H 02/06/24 Urine Blood Negative (Negative) 02/06/24 Urine Nitrite Negative (Negative) 02/06/24 Urine Bilirubin Negative (Negative) 02/06/24 Urine Urobilinogen Negative (Negative) 02/06/24 Urine Leukocyte Esterase Negative (Negative) 02/06/24 Urine WBC (Auto) 0-5 /hpf (0-5) 02/06/24 Urine RBC (Auto) 0-2 /hpf (0-2) 02/06/24 Urine Hyaline Casts (Auto) 0-2 /lpf (0-2) 02/06/24 Urine Epithelial Cells (Auto) 3-5 /hpf (0-2) H 02/06/24 Urine Bacteria (Auto) 1+ (None Seen) H 02/06/24 Blood Type O Positive 02/06/24 Antibody Screen NEGATIVE 02/06/24 Testing Laboratory Results Surgeon's office made aware of abnormal UA* Electrocardiogram Date: 02/06/24 SR with first degree AVB at 68bpm. "Otherwise normal ECG" Echocardiogram Date: 08/29/23 EF 60-65%. Apical lateral wall hypokinesis. No thrombus. Mild LAD. Moderately dilated ascending aorta. Moderate aortic root dilatation. Mild concentric LVH. Mild AR. Stress Test Date: 02/17/24 Type: DSE Normal pharmacologic stress echocardiogram. No echocardiographic or ECG evidence of myocardial ischemia having achieved heart rate adequate for diagnostic purposes. 83% MPHR. LVEF 60-65%. Mild concentric LVH. Mild AR. RVSP normal. Moderately dilated aortic root/ascending aorta. Ascending aorta diameter 4.4 cm (no change on direct comparison to 08/29/2023 study). Other Testing Chest CT Date: 11/10/23 1. The 5 mm groundglass nodule within the left lower lobe on the 01/05/[address] has resolved in the interval. 2. No new or suspicious pulmonary nodules identified. 3. A 5 cm ascending thoracic aortic aneurysm. Follow-up cardiothoracic surgery consultation recommended. 4. Mild emphysema. *Thoracic aortic aneurysm followed closely by [facility]- will be seeing cardio for preop prior to upcoming surgery*
--- NOTE | 2024-02-29 05:30 | History & Physical Bridge Note ---
Date of Service February 29, 2024 History & Physical Bridge Note I have examined the patient, reviewed the History & Physical and in the interval since the performance of the History & Physical I have noted the following changes of clinical significance: no changes noted
[2024-02-29] MEDS: LR 500ML BOLUS, THEN 15ML/HR IV SCH (06:20)
[2024-02-29] MEDS: LR 60ML/HR IV SCH (06:21)
[2024-02-29] MEDS ORDERED: BUPIVACAINE 0.5 % 5 MG/1 ML PF 10ML VIAL ONE (06:23)
[2024-02-29] MEDS ORDERED: MIDAZOLAM HCL 1 MG/ML 2ML VIAL ONE (06:28)
[2024-02-29] MEDS ORDERED: fentaNYL citrate PF 100 MCG/2 ML VIAL ONE (06:28)
[2024-02-29] MEDS ORDERED: PROPOFOL IV EMULSION 10 MG/ML 20 ML VIAL IV ONE (06:29)
[2024-02-29] MEDS ORDERED: ONDANSETRON INJ 2 MG/ML 2 ML VIAL ONE (06:29)
[2024-02-29] MEDS ORDERED: LIDOCAINE 2% 2 ML VIAL/AMP(20MG/ML) INFIL ONE (06:29)
[2024-02-29] MEDS: TRANEXAMIC ACID 1,000 MG **IV Pre-op IV SCH (06:37)
[2024-02-29] MEDS: ceFAZolin 2000MG 2,000 MG/15 ML SYR IV SCH ×2 (06:52→14:48)
[2024-02-29] MEDS ORDERED: PHENYLEPHRINE 100MCG/ML 10ML SYR IV ONE (07:15)
[2024-02-29] MEDS ORDERED: fentaNYL citrate PF 100 MCG/2 ML VIAL IV PRN (07:15)
[2024-02-29] MEDS ORDERED: ePHEDrine sulfate 50 MG/5 ML SYR ONE (07:15)
[2024-02-29] MEDS ORDERED: ePHEDrine sulfate 50 MG/ML AMP IV PRN (07:15)
[2024-02-29] MEDS ORDERED: ATROPINE SULFATE 0.1 MG/ML 10ML SYR IV PRN (07:15)
[2024-02-29] MEDS: ORTHO JOINT ANESTHETIC ONE (07:30)
[2024-02-29] MEDS: TRANEXAMIC ACID 1,000 MG **IV Intra-op IV SCH (08:02)
[2024-02-29] MEDS ORDERED: PHENYLEPHRINE HCL 10 MG/ML VIAL ONE (08:06)
[2024-02-29] MEDS: ROPIVACAINE 0.5% HCL/PF 246 MG, Ketorolac (*for OR use only*) 30 MG, EPINEPHrine 30MG/3... INFIL SCH (08:12)
--- NOTE | 2024-02-29 08:22 | Post Operative Brief Note ---
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 Fluids See anesthesia report Complications None
--- NOTE | 2024-02-29 08:27 | Operative Report ---
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 as well as possible AVN segment failed conservative management pre and postop diagnosis same I identified the patient and participated in the time-out.: Yes Procedure Operation Date: 02/29/24 07:00 <No data on this case meets the specified criteria> Noncemented left total replacement with dual mobility cup based on back stiffness Surgeon Dirk Grimaldo MD Proj Engineer Kari no resident or fellow available Estimated Blood Loss 150 Findings Consistent with Post-Op Diagnosis Severe osteoarthritis with cystic formation acetabulum femoral head Fluids See anesthesia report Specimens Bone pathology Drains None Complications None Indications Severe pain , failed conservative management marked x-ray findings Description of Procedure After the patient was appropriate notified site verified consent verified antibiotics confirmed to be given the left lower extremity was prepped and draped use routine fashion with patient in right lateral decubitus position. He was about a centimeter short to 1.5 cm short preop. After appropriate positioning the left lower extremity was prepped and draped use routine fashion. Appropriate landmarks were placed on the both ankles and the knee On the right to assist with leg length assessment. Posterior approach the hip was then made sharp dissection carried through the skin blunt dissection down the fascia this was incised under direct vision care taken to protect the sciatic nerve and deep retractor was placed the short external rotators were identified and released care taken to protect the abductors capsule was then teed and the hip dislocated easily. Femoral neck was then resected. The proximal femur was prepared later on. Acetabular exposure was obtained in an excellent way and serial reaming To a 54 to 54 cup impacted into appropriate anteversion inclination and secured with additional 6.5 x 25 screw with excellent purchase. Some marginal osteophytes were resected from the inferior posterior area. Dome cover was then placed. Femur was then flexed internally rotated proximal femur prepared with the boxing trainer canal finder lateralizing rest and serial broaching up to a size 5 reduction carried out with a standard collar +5 head was just still slightly short. The hip was then dislocated all remaining trial elements were removed. Wound irrigated with Betadine Pulsavac permanent femoral stem seated in the +8.5 head seated and the leg lengths were excellent. Hip was then irrigated 1 final time and closed with #2 Vicryl for the capsule of the short external rotators then the deep fascia and the deep fat and then 2-0 Vicryl for the superficial fat and stainless to clips for skin appropriate dressing applied the patient transferred recovery in satisfactory condition having tolerated the procedure well. Summary of implants size 54 acetabular shell sector cup 25 x 6.5 screw whole case hardener dome cover 54/47 liner 5 standard collared Actis stem 47/28 bipolar dual mobility cup and a 28+8.5 ceramic head. EBL was 150 cc or less crystalloid per anesthesia DVT prophylaxis per protocol. Patient will require post op rehab based on his living situation at home with a debilitated . He also has some peripheral neuropathy would benefit from inpatient rehab. He also has significant lower extremity venous stasis disease and needs to be followed carefully with appropriate stockings leg elevation and hip postural and discretion precautions. The mobility cup was selected based on his overall risk profile. This includes his low back stiffness. I attest to the content of the Intraoperative Record and any orders documented therein. Any exceptions are noted below.
--- NOTE | 2024-02-29 08:28 | Orthopedic Progress Note ---
Date of Service February 29, 2024 Orthopedic Progress Note Postop left total replacement. Patient tolerated well. Denies chest pain shortness of breath fever chills nausea vomiting or headache. Vital signs are stable he is afebrile. Neurovascular check limited by spinal. Postop x-rays pending. Assessment doing well continue care pathway family notified. Will need immediate case management and PT OT today to care for potential inpatient rehab discharge tomorrow.
--- NOTE | 2024-02-29 08:30 | Discharge Summary ---
Date of Service March 01, 2024 Admission HPI Per Admitting Provider Severe osteoarthritis left Principal Diagnosis Severe osteoarthritis left hip Discharge Data Allergies Allergy/AdvReac Type Severity Reaction Status Date / Time doxycycline Allergy Intermediate Hives Verified 02/29/24 05:53 Vaccinations None Consultations PT OT case management Procedures Performed Operation Date: 02/29/24 07:00 <No data on this case meets the specified criteria> Noncemented dual mobility total hip replacement Ordered Studies X-rays bone pathology Hospital Course (1) Status post left hip replacement: Total Time Total Time Spent Total Time Spent (In Minutes): 5 Discharge Plan Discharge Items Reason For Visit: Left Hip Osteoarthritis Discharge Diagnosis: Same Condition on Discharge: Good Activity: Per Instructions section Lifting: Gradually increase as tolerated Bathing: Keep incision dry Sexual Activity: Wait until after follow-up appointment Exercise/Sports: Wait until after follow-up appointment Driving/Machine Use: No driving until cleared by Dr. Grimaldo Weightbearing: Full weightbearing Non-emergency contact: Surgeon Call non-emergency contact if: you have any medication questions, your pain is not controlled, your temperature is above 101.5, your wound has increased redness, your wound has increased drainage and your wound pain has increased Follow-up/Referrals: Joshua Allen MD [Primary Care Provider] - Diet: Heart Healthy Addtl Attending Provider Instructions: New Medicine: * You will likely be taking one or more of these medicines: 1. Percocet - Take, as directed, when you need it, every four to six hours to control your pain. 2. Iron Sulfate - Take 1x each day for the month after surgery to help you replace the blood lost during surgery. 3. Eliquis - Thins your blood to lessen the chance of forming a blood clot. * The most common side effects of pain medicine and iron are nausea and constipation. If nausea or constipation is too much of a problem or if you have any questions about your new medicines or doses, call [facility] at . We will try to help you manage these issues. "VERY IMPORTANT TO READ AND REVIEW" Blood Clots and Blood Thinning Medicine: * You are given Eliquis during the immediate post-operative period to lessen the risk of blood clots forming in your legs and/or lungs. It is usually given for 4 weeks after surgery. Pain: * The immediate post-operative period after hip replacement surgery is often quite painful. * You are given a prescription for pain medicine. You should take it, as directed, when you need it, especially before physical therapy and before going to bed. Pain that interferes with sleep is very common and can last several months. * You will likely need pain medicine for the first two to four weeks. It will not stop all of the pain. The pain will lessen and as you feel better, you may change to milder pain medicine such as Tylenol. * The most common side effects of pain medicine are nausea and constipation, so don't take more than you need. Physical Therapy: * Follow the "Hip Precautions Instructions." * In some cases, the social media marketer at the hospital will arrange to have a therapist come to your house for the first couple of weeks to help you learn these skills. * You need to practice on your own or with the help of a family member as needed. * When you learn these skills, most of the therapy can be done on your own. Home Exercise: * You were shown a series of exercises in the hospital. Do these exercises three to four times each day including the exercises you were shown in physical therapy. Walking: * Get up and walk several times each day. For the first four weeks, try not to stand or walk for more than one hour at a time. If you do stand or walk for more than one hour, you will not hurt anything, but your leg will likely swell. * As you feel comfortable, you may change from the walker or crutches to a cane and then to independent walking. SELF CARE INSTRUCTIONS AFTER TOTAL HIP REPLACEMENT Until the incision and soft tissues around your hip have healed, there is a possibility that the hip prosthesis could dislocate. A. Observe the following precautions to prevent dislocation: 1. Don't bend your hip greater than 90 degrees. 2. Avoid crossing your legs or ankles while standing or lying. 3. Sit with your feet placed 6 inches apart. 4. When sitting, keep your knees below your hips. Sit on a firm surface, avoid deep, soft chairs and couches. Use an elevated toilet seat in the bathroom. 5. Don't bend over at the waist. Use a long handled shoehorn and a sock aid to help you put on your shoes and socks. A head track coach can help you waste picker objects that are too high or too low to reach. 6. Keep car riding to a minimum for at least one month after surgery. B. Your balance may be shaky for a while. Use crutches or a walker until directed by your doctor. C. Use hand rails when walking on stairs. D. Wear low heeled shoes with non-slip soles. E. Be sure that your floors are free of things that could trip you - throw rugs, electrical cords, small objects. Avoid wet and waxed floors, especially with crutches and canes. F. Try to walk several times a day with rest periods between. G. Continue with all the exercises taught to you in the hospital. Again, make walking a part of your daily routine. VERY IMPORTANT TO READ AND REVIEW A. Take Eliquis (blood thinning medication) as directed by your doctor. B. There are a few signs you need to watch for after you are home. If you notice any of the followin. Increased severe hip pain. Some pain is expected especially when you exercise. 2. Increased swelling in your leg or knee; pain or swelling of the calf muscle in either lower leg. 3. Any fluid drainage from the incision. 4. Shortness of breath or chest pain. TEDs/Elastic Stockings: * The white elastic stockings help limit swelling and prevent blood clots from forming in your legs. The more you wear them, the more they work. * Wear them for six weeks. Prevention of Infection: * Take antibiotics one hour before any dental cleaning, dental work, urological procedure, gastrointestinal procedure or any invasive surgery in order to prevent your new joint from getting infected. * You may get the antibiotics from the doctor performing the procedure or we will call in a prescription to the pharmacy of your choice. Call the office for a prescription at least 2 days prior to your a ppointment. Things to Watch For: * Drainage from the incision site that occurs more than one week after your surgery. * Severely increased leg pain or swelling. * Increased redness at the incision site. * Fever above 101 degrees Fahrenheit. * Unusual chest pain or shortness of breath. * Unusual pain or burning with urination. DIET: * Resume previous diet. MEDICATIONS: * Please take your prescriptions as instructed at your pre-op appointment and/or see medication discharge instructions listed above. * If concerns develop, call your physician's office at . SPECIAL CARE INSTRUCTIONS: * Ice/Elevate as instructed. * Keep dressing clean, dry, intact. * Your surgical extremity may be discolored due to prepping agents used on the skin. A bluish-green tint is a normal variant and should not cause alarm. Call your doctor at [phone] if: * Temperature above 101 degrees * Pain not relieved by pain medicine ordered * There is increased drainage or redness from any incision * You have any unanswered questions, problems or concerns. FOLLOW UP VISIT: * If not already scheduled, please call the office at to schedule a follow-up appointment. Start Eliquis evening. Take it twice per day for the next 4 weeks to prevent clots Ice the hip frequently to reduce pain and swelling Use your walker for ambulation and standing Follow-up in the office in 2 weeks on March 15 as scheduled for staple removal Pending Studies at Discharge: Yes (Bone pathology) Medications and DC Order Prescriptions: No Action triamterene-hydrochlorothiazid 37.5-25 mg capsule 1 cap PO DAILY Qty: 90 3RF nortriptyline 75 mg capsule See Rx Instructions .ROUTE .COMPLEX Qty: 90 3RF Dose Instruction: TAKE 1 CAPSULE BY MOUTH 2-3 HOURS BEFORE BEDTIME Rx Instructions: TAKE 1 CAPSULE BY MOUTH 2-3 HOURS BEFORE BEDTIME gabapentin 300 mg capsule See Rx Instructions .ROUTE .COMPLEX Qty: 270 3RF Dose Instruction: TAKE 1 CAPSULE BY MOUTH THREE TIMES A DAY Rx Instructions: TAKE 1 CAPSULE BY MOUTH THREE TIMES A DAY atorvastatin 20 mg tablet 20 mg PO DAILY Qty: 90 3RF metoprolol succinate 25 mg tablet extended release 24 hr 12.5 mg PO DAILY Qty: 45 3RF Rx Instructions: Take 1/2 tablet by mouth every day docusate sodium 100 mg capsule 100 mg PO DAILY multivitamin Tablet 1 tab PO DAILY aspirin 81 mg Tablet,Delayed Release (Dr/Ec) 81 mg PO DAILY fluoride (sodium) [Denta 5000 Plus] 1.1 % cream 1 applic PO HS cyanocobalamin (vitamin B-12) [Vitamin B-12] 250 mcg Tablet 250 mcg PO DAILY psyllium husk [Metamucil] 0.4 gram Capsule 0.4 g PO DAILY PRN (Reason: Constipation) Admission Data Admit Date/Time: 02/29/24 08:33 Attending Provider: Dirk Grimaldo Admit Provider: Dirk Grimaldo Primary Care Provider: Joshua Allen. Other Providers: [facility]; Alexsandra Tovar [facility]
--- NOTE | 2024-02-29 08:37 | Operative Report ---
Post Operative Report Pre & Post Diagnosis Operation Date: 02/29/24 07:00 Pre-Op Diagnosis: Left Hip Degenerative Joint Disease Post-Op Diagnosis: Left Hip Degenerative Joint Disease I identified the patient and participated in the time-out.: Yes Procedure Operation Date: 02/29/24 07:00 Actual Procedures p Left Total Hip Arthroplasty with Dual Mobility Implant, Uncemented(Left) - Dirk Grimaldo MD Surgeon ROSENDA Grimaldo MD Dietitian Teacher Kari ANDERSEN no resident or fellow available Estimated Blood Loss 150 Findings Consistent with Post-Op Diagnosis see operative report Specimens see operative report Drains none Complications none Disposition Accompanied Patient To Recovery: Yes Indications This 83 year old male presented to the office with complaints of persisting left hip pain. He had tried conservative care measures without improvement. He elected to proceed with surgical intervention after being educated about potential risks and outcomes. Preoperative imaging was obtained. Description of Procedure The patient was administered a spinal anesthetic and then taken to the operating room where he was given sedation. He was prepped and draped in the usual sterile fashion. Please see Dr. Grimaldo's operative report for specifics of the procedure. I was present for the entire case from initial patient posit ioning through final closure. Assistance was provided in tissue retraction, hemostasis, trial implant placement, final implant placement, and final wound closure. The patient was taken to the recovery room in satisfactory condition. I attest to the content of the Intraoperative Record and any orders documented therein. Any exceptions are noted below.
[2024-02-29] MEDS ORDERED: diphenhydrAMINE 50 MG/ML VIAL IV PRN (11:07)
[2024-02-29] MEDS ORDERED: TAMSULOSIN HCL 0.4 MG CAP PO PRN (11:07)
[2024-02-29] MEDS ORDERED: bisacodyL 10 MG SUPP PR PRN (11:07)
[2024-02-29] MEDS ORDERED: METOCLOPRAMIDE HCL INJ 5 MG/ML 2 ML VIAL IV PRN (11:07)
[2024-02-29] MEDS ORDERED: ONDANSETRON INJ 2 MG/ML 2 ML VIAL IV PRN (11:07)
[2024-02-29] MEDS ORDERED: HYDROmorphone INJ 0.5 MG/0.5 ML SYR IV PRN (11:07)
[2024-02-29] MEDS ORDERED: oxyCODONE HCL IR 5 MG TAB (IMMEDIATE RELEASE) PO PRN (11:07)
[2024-02-29] MEDS ORDERED: NALOXONE HCL 0.4 MG/1 ML VIAL/CARP IV PRN (11:07)
[2024-02-29] MEDS ORDERED: ALUMINUM/MAGNESIUM SUSP 30 ML UDC PO PRN (11:07)
[2024-02-29] MEDS ORDERED: MAGNESIUM HYDROXIDE SUSP 30 ML UDC PO PRN (11:07)
[2024-02-29] MEDS ORDERED: PSYLLIUM or GUAR GUM FIBER 4GM PACKET PO PRN (11:11)
--- NOTE | 2024-02-29 11:52 | Anesthesiology Progress Note ---
Date of Service February 29, 2024 Anesthesia Post Procedure Vital Signs Vital Signs: Temp Pulse Pulse Resp BP BP Pulse Ox 02/29/24 11:33 52 L 16 117/75 100 02/29/24 11:00 36.4 C L 63 14 101/64 98 02/29/24 10:30 02/29/24 10:30 36.4 C L 62 14 107/65 95 02/29/24 10:15 36.3 C L 60 18 100/66 96 02/29/24 10:00 61 20 106/61 94 02/29/24 09:45 62 18 115/67 94 02/29/24 09:35 36.4 C L 63 12 118/74 94 02/29/24 09:25 62 12 122/68 94 02/29/24 09:15 63 16 124/68 97 02/29/24 09:05 62 14 128/72 100 02/29/24 08:55 63 14 116/66 99 02/29/24 08:45 58 L 14 104/62 100 02/29/24 08:35 59 L 12 107/73 100 02/29/24 08:25 36.4 C L 56 L 15 91/61 L 98 02/29/24 05:59 36.5 C 82 20 130/87 90 O2 Del Method O2 Flow Rate 02/29/24 11:33 Nasal Cannula 1 02/29/24 11:00 Nasal Cannula 2 02/29/24 10:30 Nasal Cannula 2 02/29/24 10:30 Nasal Cannula 2 02/29/24 10:15 Room Air 02/29/24 10:00 Room Air 02/29/24 09:45 Room Air 02/29/24 09:35 Room Air 02/29/24 09:25 Room Air 02/29/24 09:15 Oxymask 2 02/29/24 09:05 Oxymask 2 02/29/24 08:55 Oxymask 2 02/29/24 08:45 Oxymask 4 02/29/24 08:35 Oxymask 6 02/29/24 08:25 Oxymask 6 02/29/24 05:59 Room Air Notes Mental Status: alert / awake / arousable Patient Amnestic to Procedure: Yes Nausea / Vomiting: adequately controlled Pain: adequately controlled Airway Patency, RR, SpO2: stable & adequate BP & HR: stable & adequate Hydration State: stable & adequate Neuraxial Anesthesia: was administered and sensory block is resolving Anesthetic Complications: no major complications apparent
[2024-02-29] MEDS: METOPROLOL SUCC 25MG EXT REL TAB PO SCH (12:23)
[2024-02-29] MEDS: DOCUSATE SODIUM 100 MG CAP PO SCH ×2 (12:28→12:31)
[2024-02-29] MEDS: ATORVASTATIN 20 MG TAB PO SCH (12:29)
[2024-02-29] MEDS: KETOROLAC TROMETHAMINE 15 MG/ML VIAL IV SCH (12:30)
[2024-02-29] MEDS: SODIUM CHLORIDE 0.9% 1,000 ML IV SCH (12:31)
[2024-02-29] MEDS: MULTIVITAMIN TAB PO SCH (12:31)
[2024-02-29] MEDS: ASPIRIN 81 MG ECTAB PO SCH (12:31)
--- NOTE | 2024-02-29 14:15 | Orthopedic Progress Note ---
Date of Service February 29, 2024 Assessment & Plan Admission and Anticipated Discharge Date Admission Date: February 29, 2024 Orthopedic Progress Note Has no major issues. Denies chest pain shortness of breath fever chills nausea vomiting or headache. Had a good lunch. Neurovascular check femoral sciatic nerve is normal wound dressing clean dry and intact. Postop x-rays look excellent. Assessment doing well status post a left total replacement dual mobility noncemented. At this point time well getting up out of bed move mobilize case management to assess for potential transfer to the orthopedic specialty hospital tomorrow. Initiate anticoagulation tomorrow. Dressing change tomorrow prior to discharge. Saline lock IV fluid as he is eating and drinking well.
[2024-02-29] MEDS: GABAPENTIN 300 MG CAP PO SCH (14:49)
[2024-02-29] MEDS: ACETAMINOPHEN 500 MG TAB PO SCH (14:49)
--- OUTSIDE RECORDS SUMMARY | 2024-02-29 17:11 | External Medical Summary | Continuity of Care Document ---
Author Name Unknown Organization [facility] [address] [place] [id number] Care Team Providers Care Basketball Coach Name Role Phone Alejandro Joshua Fair Primary Care Physician [phone] Encounter [facility] [id number] Date(s): 02/17/24 - 02/17/24 [facility] [address] [facility] [place] [facility] [address], [address], [address] [place] [address] [phone] Discharge Disposition: Home or Self Care Attending Physician: MD Rikki, Leilani Ferrer Referring Physician: GANESH Rae, Mariano Mcmanus Allergies, Adverse Reactions, Alerts Substance Criticality Severity Reaction Reaction Severity Status doxycycline Rash Active Medications aspirin 81 mg oral delayed release tablet Start: 01/02/13 11:17:00 AM EDT, 1 tab, PO, Daily Start Date: 01/02/13 Status: Ordered atorvastatin 20 mg oral tablet Start: 09/29/23 11:00:00 AM EST, 90 each, TAKE 1 TABLET BY MOUTH DAILY Start Date: 09/29/23 Status: Ordered betamethasone dipropionate 0.05% topical cream Start: 01/06/17 2:15:00 PM EDT, 1 appl, topical, bid, Disp# 100 g, Refills: 2, apply to dermatitis on the trunk and extremities until clear and then as needed, Pharmacy: [facility] #[id number] Start Date: 01/06/17 Status: Ordered Colace 100 mg oral capsule Start: 07/05/13 9:30:00 AM EST, 2 cap, PO, Daily, PRN: as needed for constipation Start Date: 07/05/13 Status: Ordered gabapentin Start: 07/05/12 3:14:00 PM EST, 300 mg =, PO, tid Start Date: 07/05/12 Status: Ordered hydroCHLOROthiazide-triamterene 25 mg-37.5 mg oral capsule Start: 02/11/20 1:53:00 PM EDT, 1 cap, PO, Daily Start Date: 02/11/20 Status: Ordered Metamucil Start: 07/05/13 9:30:00 AM EST, 1.7 g =, PO, Daily Start Date: 07/05/13 Status: Ordered metoprolol succinate 25 mg oral tablet, extended release Start: 09/29/23 11:00:00 AM EST Start Date: 09/29/23 Status: Ordered multivitamin Start: 01/02/13 11:18:00 AM EDT, 1 tab, PO, Daily Start Date: 01/02/13 Status: Ordered nortriptyline 75 mg oral capsule Start: 01/02/13 11:18:00 AM EDT, 1 cap, PO, qhs Start Date: 01/02/13 Status: Ordered triamcinolone 0.1% topical ointment Start: 09/29/23 11:26:00 AM EST, 1 appl, topical, bid, Disp# 454 g, Refills: 3, to legs, Pharmacy: [id number] Start Date: 09/29/23 Status: Ordered Problem List Condition Confirmation Course Effective Dates Status Health St atus Informant Actinic keratosis Confirmed Active Arthritis of left hip Confirmed Active Constipation Confirmed Active Disorder of the peripheral nervous system Confirmed Active Tinea unguium Confirmed Active Left knee pain Confirmed Active Peripheral vascular disease Confirmed Active Weight disorder Confirmed Active Procedures Procedure Date Related Diagnosis Body Site Status Colonoscopy 1 06/23/20 Completed Dental procedure 03/2014 Complete d Cataract Surgery 2 Comple roman Root canal of tooth Compl eted Surgery 3, 4 Completed 1Preparation of the colon was fair. Diverticulosis in the sigmoid colon. No specimens collected. Repeat in 5 years. 2Both eyes- 3Hammer toes 4right foot Social History Social History Type Response Smoking Status Never smoked cigaret eris Sex Male Patient Care team information Care Team Personnel Name: MD Alejandro, Joshua Fair Position: Referring DIRECT Member Role: Primary Care Provider Address: Address: [facility] [address] [place] [address] [place] Care Team Related Persons Name: AZEEM PHILLIPS Address: home [address] [place] [place], [place] [id number]
--- NOTE | 2024-02-29 17:18 | XRay Report ---
Single VIEW PELVIS CLINICAL HISTORY: Postoperative examination. FINDINGS: AP, portable, supine view of the hips and lower pelvis is compared to study dated 01/02/2024 . The skeletal structures are osteopenic. A bipolar left hip arthroplasty is in near anatomic alignme nt. A single cortical lag screw transfixes the acetabular cup. Skin clips, subcutaneous gas, and soft tissue swelling overlying the left hip are expected postsurgical changes. No acute fracture is seen. [id number] osteoarthritic change is noted in the right hip. Phleboliths are seen in the pelvis . IMPRESSION: Expected postoperative findings status post left hip arthroplasty. No fracture is seen. Electronically signed by: Zach Bruce M.D. 02/29/2024 5:17 PM
[2024-02-29] MEDS: ASCORBIC ACID 500 MG TAB PO SCH (18:10)
[2024-02-29] MEDS: NORTRIPTYLINE HCL 25 MG CAP PO SCH (18:10)
[2024-02-29] MEDS: FERROUS GLUCONATE 324 MG TAB PO SCH (18:10)
[2024-02-29] MEDS: SENNA 8.6 MG TAB PO SCH (21:50)
--- NOTE | 2024-03-01 06:51 | Orthopedic Progress Note ---
Date of Service March 01, 2024 Assessment & Plan Admission and Anticipated Discharge Date Admission Date: February 29, 2024 Orthopedic Progress Note Postop day #1 status post left total hip replacement noncemented with dual mobility implant. Wound dressing clean dry and intact. Denies dressing issues. Denies chest pain shortness of breath fever chills nausea vomiting headache. Vital signs are stable he is afebrile. Neurovascular check femoral sciatic nerve is normal. Hip is located. Notes minimal discomfort. A.m. labs are pending. Assessment and is cleared at the is not able to go home independently. He requires and this is the one that requires a lot of coaching. At this point in time he is good candidate for inpatient rehab. Discharge order is written for that. Case management to finalize plan. Begin anticoagulation today. Dressing change later today by physicians assistant boiler operator.
[2024-03-01 06:54] LABS: Basophils # (auto) 0.02 K/uL (0.00-0.20); Basophils % (auto) 0.3 %; Eosinophils # (auto) 0.03 K/uL (0.00-0.50); Eosinophils % (auto) 0.5 %; Hematocrit (blood only) 33.1 % (42.0-52.0); Hemoglobin 11.1 g/dl (14.0-18.0); Immature Granulocytes # (auto) 0.01 K/uL (0.01-0.20); Immature Granulocytes % (auto) 0.2 %; Lymphocytes # (auto) 1.04 K/uL (1.20-3.40); Mean Corpuscular Hemoglobin 33.6 pg (25.0-34.0); Mean Corpuscular Hgb Conc 33.5 g/dL (32.0-36.0); Mean Corpuscular Volume 100.3 fL (80.0-100.0); Monocytes # (auto) 0.56 K/uL (0.11-0.59); Monocytes % (auto) 8.6 %; Neutrophils # (auto) 4.83 K/uL (1.40-6.50); Neutrophils % (auto) 74.4 %; Platelet Count 126 K/uL (130-400); RDW Coefficient of Variation 13.1 % (11.5-14.5); RDW Standard Deviation 48.3 fL (36.4-46.3); White Blood Count 6.49 K/ul (4.8-10.8)
[2024-03-01 07:18] LABS: Calcium 7.9 mg/dl (8.6-10.3); Creatinine Clr Calc Pharmacy 54.1 ml/min; Est GFR (African American) 63.6 ml/min; Est GFR (Non-African American) 54.9 ml/min; Potassium 3.8 mmol/L (3.5-5.1)
[2024-03-01] MEDS: dexAMETHasone 10 MG in SYRINGE 0 ML IV SCH (08:26)
[2024-03-01] MEDS: APIXABAN 2.5 MG TAB PO SCH (08:26)
[2024-03-01] MEDS: TRIAMTERENE/HCTZ 37.5/25MG TAB PO SCH (08:27)
--- NOTE | 2024-03-01 09:23 | Orthopedic Progress Note ---
Date of Service March 01, 2024 Assessment & Plan (1) Status post left hip replacement: Plan: The patient was educated regarding today's findings. A postsurgical dressing was placed using gauze, ABDs, and Medipore tape. This can remain in place through the weekend. It may be changed on Tuesday as needed for soiling. Continue with PT and OT today. He did participate in both yesterday. Application for [facility] rehab has been made. Awaiting insurance autho rization. He has [facility] half-way facility as a backup choice. Continue with ice and frequent ambulation. Follow-up in the office in 2 weeks as scheduled for staple removal. Discharge instructions will be completed once his final destination is known. Admission and Anticipated Discharge Date Admission Date: February 29, 2024 Subjective This 83-year-old male is seen today in his room. He is 1 day status post left total hip arthroplasty. He states he is doing fine. He has had minimal pain. He denies any chest pain, shortness of breath, nausea, vomiting, or abdominal pain. He has been out of bed to go to the bathroom. No other complaints. He is hoping to go to [facility] for rehab. Review of Systems Review of Systems: Unchanged from yesterday. Physical Exam Physical Exam: General: Well-developed, well-nourished, elderly male, in no acute distress. Sitting in his bedside chair. Alert and oriented. Skin: Warm and dry with good turgor. No rashes. Postsurgical dressing is in place on the left hip. Upon removal, he has a moderate amount of bloody drain age on his dressings. His wound is closed. Glynn are in place. Wound edges are well-approximated. He has no active bleeding at this time. No significant ecchymosis, edema, or pocketing. No erythema. Musculoskeletal: The patient has supple motion of his left hip for flexion as well as rotation. He is able to get up from the chair to a standing position under his own power without assistance. He has intact motor function of his left knee and ankle for flexion and extension. Neurologic: Gross sensation is intact across the left leg by soft touch. Peripheral pulses are 2+. Results & Data Vital Signs (Past 12 Hours) Vital Signs Temp Pulse Resp BP Pulse Ox O2 Del Method 03/01/24 07:18 Room Air 03/01/24 07:17 36.6 C 89 14 100/63 92 Room Air 03/01/24 02:23 36.4 C L 82 18 146/70 H 96 Room Air 02/29/24 22:09 36.4 C L 75 18 145/87 H 96 Room Air
--- NOTE | 2024-03-02 07:44 | Orthopedic Progress Note ---
Date of Service March 02, 2024 Assessment & Plan Admission and Anticipated Discharge Date Admission Date: February 29, 2024 Orthopedic Progress Note Post op day #2 status post left total replacement noncemented with dual mobility implant. Denies any chest pain shortness of breath fever chills nausea vomiting or headache. Eating well drinking well. Voiding well. Still awaiting insurance authorization for placement. Vital signs are stable he is afebrile. Neurovascular check from sciatic nerve is normal. Wound dressing clean dry and intact. L hip rotation supple pain-free. Assessment doing well status post left total hip replacement. Continue PT OT. Continue assessment and authorization for placement. Continue anticoagulation. No need for dressing change today and splint clean and dry. Reinforce as needed.
== END 2024-03-03 10:48 ==
LOC: 3E 05:28 → ASU 05:28

== ENCOUNTER 2025-04-30 21:59 | Observation (INO) ==
--- NOTE | 2025-04-30 22:19 | Emergency Department Note ---
History of Present Illness General Chief complaint: Fall Stated complaint: FALL History of Present Illness This 84-year-old male coming from home with a history of Coronary Artery Calcifications, Chronic Venous Insufficiency, Stasis Dermatitis, Peripheral Neuropathy, SARS Co-V 2 Infection, Pulmonary Nodules, Pulmonary Hypertension, Osteoarthritis, Abnormal EKG (left axis deviation), Ascending Thoracic Aortic Aneurysm (measuring 47 mm on CTA Chest on 01/05/[address] Chest 11/10/23) presents to the ER for increasing weakness with subjective fever and chills. Patient has been having increasing weakness. Patient denies chest pain, dyspnea, abdominal pain, vomiting, diarrhea, fall. Patient got weak and was lowered down to his chair. He did not actually fall and strike his head. Home Medications Medication Instructions Recorded Confirmed Type docusate sodium 100 mg capsule 200 mg PO QAM 05/07/19 05/01/25 History aspirin 81 mg tablet,delayed 81 mg PO QAM 01/05/23 05/01/25 History release cyanocobalamin (vitamin B-12) 250 250 mcg PO QAM 01/30/24 05/01/25 History mcg tablet (Vitamin B-12) psyllium husk 0.4 gram capsule 0.4 g PO DAILY PRN Constipation 01/30/24 04/30/25 History (Metamucil) atorvastatin 20 mg tablet 20 mg PO QAM 04/30/25 05/01/25 History gabapentin 300 mg capsule 300 mg PO TID 04/30/25 05/01/25 History metoprolol succinate 25 mg 12.5 mg PO QAM 04/30/25 05/01/25 History tablet,extended release 24 hr nortriptyline 75 mg capsule 75 mg PO HS 04/30/25 05/01/25 History triamterene 37.5 1 cap PO QAM 04/30/25 05/01/25 History mg-hydrochlorothiazide 25 mg capsule Allergies Allergy/AdvReac Type Severity Reaction Status Date / Time doxycycline Allergy Intermediate Hives Verified 05/01/25 00:18 Past Med/Surg History Problem List (Updated 05/01/25 @ 02:16 by Keren Bello PA-C) Acute UTI (Acute) BPH (benign prostatic hyperplasia) Weakness (Acute) Near syncope (Acute) Chronic venous insufficiency Chronic stasis dermatitis Status post left hip replacement Dyslipidemia HTN (hypertension) Coronary artery calcification [facility] cardio Thoracic aortic aneurysm Under surveillance by [facility] cardio Echo 08/2023: Moderately dilated ascending aorta (4.9cm diameter per [facility] cardio 09/05/23 office visit note, "stable") Chest CT (10/2023): 5 cm ascending thoracic aortic aneurysm Medical History Osteoarthritis History of COVID-19 (12/2022) Peripheral neuropathy Pulmonary nodule Surgical History History of foot surgery History of colonoscopy History of oral surgery History of tonsillectomy and adenoidectomy Family History Father Acute myocardial infarction Lung cancer Colon cancer Uncle Acute myocardial infarction Mother Brain cancer Brother Hypertension Tremor Social History Smoking Status: Former smoker Tobacco Type: Cigarettes Second Hand Exposure: No; Do You Dip or Chew Tobacco: No; Hx Alcohol Use: Yes Alcohol type: beer, wine and hard liquor Hx Substance Use: No Preferred Language: Tajik Communication Ability: Effective Fulfillment Associate Required: No Beliefs That Will Affect Care: None marital status: Current Living Situation: Spouse Feels Safe at Home: Yes Assistive Devices: Cane and Walker Review of Systems A total of 10 systems reviewed and were otherwise negative Physical Exam Vital Signs Vital Signs - 24 hr 04/30/25 22:07 04/30/25 22:28 04/30/25 22:35 Temperature 37.3 C Temperature Source Oral Pulse Rate 89 89 87 Pulse Rate from SpO2 Sensor Pulse Rhythm Regular Regular Pulse Strength Normal Respiratory Rate 20 20 Respiratory Effort / Characteristics Non-Labored Spontaneous Respiratory Depth Normal Respiratory Pattern Regular Blood Pressure 138/94 Blood Pressure Mean 108 Blood Pressure Position Lying Pulse Oximetry 95 95 Oxygen Delivery Method Room Air Room Air Sepsis New/Unexplained Change in Mental Status N/A Sepsis Action Taken by Nursing No Action Required 04/30/25 23:02 04/30/25 23:39 Temperature Temperature Source Pulse Rate 88 84 Pulse Rate from SpO2 Sensor 81 Pulse Rhythm Pulse Strength Respiratory Rate 22 24 Respiratory Effort / Characteristics Respiratory Depth Respiratory Pattern Blood Pressure 119/81 109/70 Blood Pressure Mean 87 83 Blood Pressure Position Pulse Oximetry 95 94 Oxygen Delivery Method Sepsis New/Unexplained Change in Mental Status Sepsis Action Taken by Nursing VITALS: Vitals are noted on the nurse's note and reviewed by myself. Vital signs febrile. GENERAL: Elderly male following commands, in no acute distress, nondiaphoretic, well-developed well-nourished. SKIN: The skin was without rashes, erythema, edema, or bruising. There is no tenting of the skin. Capillary reflex less than 2 seconds. HEAD: Normocephalic atraumatic. EARS: External auditory canals clear EYES: Pupils equal round and reactive to light and accommodation. Conjunctivae without injection, sclerae without icterus. Extraocular movements intact. NOSE: Patent, no discharge. MOUTH: Mucous membranes moist. Pharynx without erythema or exudate. Uvula midline. Airway patent. Tongue does not deviate. NECK: Supple without nuchal rigidity. No lymphadenopathy. No thyromegaly. Cervical spine is nontender. No JVD. HEART: Regular rate and rhythm LUNGS: Clear to auscultation bilaterally without wheezes, rales or rhonchi. No retractions or accessory muscle use. ABDOMEN: Positive bowel sounds x 4. Normal tympanic percussion. Soft, nontender, without masses or organomegaly. Knutson sign negative. No guarding or rebound tenderness. No CVA tenderness MUSCULOSKELETAL: No muscle atrophy, erythema, or edema noted. Extremities nontender to palpation. NEURO: Patient was alert and oriented to person place and time. Normal sensation to light and sharp touch. Cranial nerves II through XII grossly intact. No pronator drift. Cerebellar exam intact. No focal neurological deficits. Course Administered Medications Lactated Ringer's (Lr) 1,000 mls @ 125 mls/hr IV .Q8H [facility] Stop: 05/04/25 01:56 Last Admin: 05/01/25 02:13 Dose: 125 mls/hr Documented By: GEOFFREY Discontinued Medications Sodium Chloride (Nss) 1,000 mls @ 999 mls/hr IV .Q1H1M SOFÍA Stop: 04/30/25 23:15 Last Infusion: 05/01/25 01:58 Dose: Infused Documented By: Admin: 04/30/25 23:20 Dose: 999 mls/hr Documented By: HERVE Piperacillin Sod/Tazobactam Sod (Zosyn) 4.5 gm in 100 mls @ 200 mls/hr IV NOW ONE; Protocol Stop: 04/30/25 22:36 Last Infusion: 05/01/25 00:17 Dose: Infused Documented By: Admin: 04/30/25 23:21 Dose: 200 mls/hr Documented By: HERVE Acetaminophen (Ofirmev) 1,000 mg in 100 mls @ 400 mls/hr IV NOW STA Stop: 04/30/25 22:33 Last Infusion: 04/30/25 23:30 Dose: Infused Documented By: Admin: 04/30/25 23:20 Dose: 400 mls/hr Documented By: HERVE Lactated Ringer's (Lr) 1,000 mls @ 999 mls/hr IV .Q1H1M ONE Stop: 05/01/25 02:12 Last Admin: 05/01/25 01:57 Dose: Not Given Documented By: GEOFFREY Miscellaneous (Patient's Height &/Or Weight Needed) 1 each N/A Q2H STA Stop: 05/01/25 02:08 Last Admin: 05/01/25 02:13 Dose: 1 each Documented By: GEOFFREY Medical Decision Making Medical Records Attestation: I reviewed the patient's medical records. Home Medications Current Medication List: was personally reviewed by me Laboratory Data Attestation: I reviewed the patient's lab results. 04/30/25 22:30 04/30/25 22:30 Lab Results 04/30/25 05/01/25 Range/Units 22:30 00:38 WBC 12.00 H (4.8-10.8) K/ul RBC 4.54 L (4.70-6.10) M/uL Hgb 14.9 (14.0-18.0) g/dl Hct 45.3 (42.0-52.0) % MCV 99.8 (80.0-100.0) fL MCH 32.8 (25.0-34.0) pg MCHC 32.9 (32.0-36.0) g/dL RDW Std Deviation 48.8 H (36.4-46.3) fL RDW Coeff of Jasiel 13.3 (11.5-14.5) % Plt Count 143 (130-400) K/uL MPV 9.8 (9.4-12.4) fL Immature Gran % (Auto) 0.3 % Neut % (Auto) 84.3 % Lymph % (Auto) 6.8 % [place] % (Auto) 7.8 % Eos % (Auto) 0.3 % Baso % (Auto) 0.5 % Neut # (Auto) 10.12 H (1.40-6.50) K/uL Lymph # (Auto) 0.82 L (1.20-3.40) K/uL [place] # (Auto) 0.93 H (0.11-0.59) K/uL Eos # (Auto) 0.03 (0.00-0.50) K/uL Baso # (Auto) 0.06 (0.00-0.20) K/uL Immature Gran # (Auto) 0.04 (0.01-0.20) K/uL VBG pH 7.43 H (7.36-7.41) VBG pCO2 46 (38-50) mmHg VBG pO2 27 mmHg VBG HCO3 31 mmol/L VBG O2 Saturation < 60.0 % VBG Base Excess 5.3 mEq/L Sodium 137 (136-145) mmol/L Potassium 4.0 (3.5-5.1) mmol/L Chloride 99 (98-107) mmol/L Carbon Dioxide 25 (21-32) mmol/L Anion Gap 13 H (3-11) BUN 23 (6-23) mg/dl Creatinine 1.30 (0.6-1.4) mg/dl Est Cr Clr Drug Dosing Not Reportable eGFR 54.51 BUN/Creatinine Ratio 17.7 (10-20) Glucose 106 H (70-99(Fasting)) mg/dl Lactate 1.5 (0.4-2.0) mmol/L Calcium 9.2 (8.6-10.3) mg/dl Magnesium 2.1 (1.7-2.4) mg/dl Total Bilirubin 0.8 (0.2-1.0) mg/dl Direct Bilirubin 0.1 (0-0.2) mg/dl AST 21 (13-39) U/L ALT 12 (7-52) U/L Alkaline Phosphatase 93 (34-104) U/L Troponin I High Sens 10.5 (0-20) pg/ml Total Protein 7.9 (6.0-8.3) gm/dl Albumin 4.1 (3.4-5.0) gm/dl Procalcitonin 0.08 (0-0.5) ng/ml Urine Color Yellow Urine Appearance Clear (Clear) Urine pH 5.5 (4.5-7.5) Ur Specific [place] 1.022 (1.000-1.030) Urine Protein Negative (Negative) Urine Glucose (UA) Negative (Negative) Urine Ketones Negative (Negative) Urine Blood 1+ H (Negative) Urine Nitrite Positive A (Negative) Urine Bilirubin Negative (Negative) Urine Urobilinogen Negative (Negative) Ur Leukocyte Esterase 2+ H (Negative) Urine WBC (Auto) >50 H (0-5) /hpf Urine RBC (Auto) 0-2 (0-2) /hpf U Hyaline Cast (Auto) 0-2 (0-2) /lpf U Epithel Cells (Auto) 0-2 (0-2) /hpf Urine Bacteria (Auto) 4+ H (None Seen) Urine Comment Adenovirus (PCR) Not Detected (NotDetected) B. pertussis DNA (PCR) Not Detected (NotDetected) B.parapertussis DNA PCR Not Detected (NotDetected) C. pneumoniae DNA (PCR) Not Detected (NotDetected) Coronavirus OC43 (PCR) Not Detected (NotDetected) Coronavirus HKU1 (PCR) Not Detected (NotDetected) Coronavirus 229E (PCR) Not Detected (NotDetected) SARS-CoV-2 (PCR) Not Detected (NotDetected) Coronavirus NL63 (PCR) Not Detected (NotDetected) Human Metapneumovir PCR Not Detected (NotDetected) Influenza Type A (PCR) Not Detected (NotDetected) Influenza Type B (PCR) Not Detected (NotDetected) M. pneumoniae (PCR) Not Detected (NotDetected) Parainfluenza 1 (PCR) Not Detected (NotDetected) Parainfluenza 2 (PCR) Not Detected (NotDetected) Parainfluenza 3 (PCR) Not Detected (NotDetected) Parainfluenza 4 (PCR) Not Detected (NotDetected) RSV (PCR) Not Detected (NotDetected) Entero/Rhino (PCR) Not Detected (NotDetected) Imaging Data Attestation: I personally reviewed and interpreted this imaging study as follows: Radiologist's Impression: Head CT 04/30/25 22:07 Exam(s): CT HEAD Without Contrast EXAM: CT Head Without Intravenous Contrast CLINICAL HISTORY: Reason for exam: ams. TECHNIQUE: Axial computed tomography images of the head/brain without intravenous contrast. CTDI is 36.25 mGy and DLP is 625.8 mGy-cm. Automated exposure control was utilized for the study. A dose lowering technique was utilized adhering to the principles of ALARA. COMPARISON: 01/05/2023. FINDINGS: Brain: No acute intracranial hemorrhage. There is decreased attenuation within the white matter.. Ventricles: There is prominence of the ventricular system with deepening of the sulci consistent with cortical and central atrophy. Bones/joints: Unremarkable. No acute fracture. Soft tissues: Unremarkable. Sinuses: Unremarkable as visualized. No acute sinusitis. Mastoid air cells: Unremarkable as visualized. No mastoid effusion. IMPRESSION: Atrophy. Nonspecific white matter disease. Findings appears similar to previous exam. If further evaluation is clinically necessary, consider correlation with MRI Electronically signed by: Valeriano Sawyer MD 04/30/25 23:51 PM Chest X-Ray 04/30/25 22:08 Exam(s): XR CXR 1 VIEW EXAM: XR Chest, 1 View CLINICAL HISTORY: Reason for exam: Sepsis. TECHNIQUE: Frontal view of the chest. COMPARISON: 01/05/2023. FINDINGS: There is a poor inspiratory effort. Lungs: No consolidation. Pleural space: No pleural effusion is seen. No pneumothorax. Heart: Heart is normal in size.. Mediastinum: There is uncoiling of thoracic aorta.. Bones/joints: There are some degenerative changes in the spine. IMPRESSION: Poor inspiratory effort. No acute pulmonary disease. Electronically signed by: Valeriano Sawyer MD 05/01/25 00:03 AM MDM Narrative Prior records/ancillary studies reviewed. Triage Nursing notes reviewed. Additional history obtained from EMS The patient's history was concerning for fever. Differential diagnosis: Etiologies such as viral syndrome, otitis, pharyngitis, pneumonia, influenza, meningitis, urinary tract infection, sepsis, bacteremia, as well as others were entertained. Physical examination: As above ER treatment provided: An order was placed for continuous cardiac monitoring. The monitor shows a rate of 60-100 with a sinus rhythm per my interpretation. Zosyn, IV fluids, Tylenol was ordered On reassessment the patient felt better. Diagnostics interpreted by me: ECG: Ordered for weakness EKG: Normal sinus, no acute ST-T wave changes, Q waves in inferior leads, rate 87. Impression normal sinus rhythm Q waves in inferior leads independently interpreted by myself The labs Independently Interpreted by myself revealed glucose 106 Blood cultures pending Mild leukocytosis negative biofire Urine was concerning for infection and sent for culture. Prior culture was reviewed Imaging studies: Imaging was reviewed and read by radiology Consultation: A consultation was placed with hospitalist. The case was discussed and diagnostics were reviewed. The patient was evaluated in the ER for further treatment. This appears to be consistent with fever and increasing weakness who collapsed today most likely from UTI. Patient had a low-grade fever in the ER orally and most likely is higher so septic workup was initiated. Patient was started broad-spectrum antibiotics for possible sepsis. Urine is still pending at time of admission and patient was able to urinate and deafly has a UTI with concerns of possible prostatitis. No other obvious source. Negative lactic. Mild leukocytosis. Clear x-ray. Negative head scan. Medicine was consulted and the case was discussed. Patient will be admitted to the medical service.. By the evaluation outlined above emergent etiologies such as otitis, pharyngitis, pneumonia, meningitis, sepsis, bacteremia, as well as others were deemed relatively unlikely. The pt informed about the findings as listed above. All questions were answered and pleased with the treatment. The chart was completed utilizing [employer] Speech voice recognition software. Grammatical errors, random word insertions, pronoun errors, and incomplete sentences are an occassional consequence of this system due to software limitations, ambient noise, and hardware issues. Any formal questions or concerns about the content, text, or information contained within the body of this dictation should be directly addressed to the physician court assistant for clarification. Impression & Plan Acute UTI, Near syncope, Weakness Discharge Plan Visit Data Chief Complaint: Fall Stated Complaint: FALL ED Provider: Kati Ruano ED Midlevel Provider: Keren Bello Discharge Problem: Acute UTI, Near syncope, Weakness Patient Disposition: Admitted As Inpatient Condition: Good Discharge Instructions Interventions: ED Discharge Assessment Last Done: 05/01/25 01:38
--- NOTE | 2025-04-30 22:21 | Emergency Department Note ---
ED Visit Note I was consulted by the Advanced Practice Provider, Keren Bello PA-C. I performed a substantive portion of the visit. This includes aspects of: History: Patient is an 84-year-old male presenting with generalized weakness and subjective fevers and chills. Patient reports that he got very weak this evening and had to lowered self into a chair. Denies striking his head or loss of consciousness. Denies any measured fevers at home, but does report he has been having sweats and chills. MDM: - Laboratory workup in the emergency department showed an elevated WBC (12.00); normal troponin; elevated anion gap (13); normal lactate; normal AST/ALT; normal procalcitonin - CXR image reviewed by myself was negative for pneumonia, per my interpretation. - CT head wo contrast negative for acute intracranial pathology. - Patient empirically treated with Zosyn in the emergency department. - UA did show evidence of infection - Patient to be admitted to inpatient hospitalist service for further evaluation and management. .
[2025-04-30 22:51] LABS: Base Excess VBG 5.3 mEq/L; HCO3 VBG 31 mmol/L; Oxygen Saturation VBG < 60.0 %; PCO2 VBG 46 mmHg (38-50); PO2 VBG 27 mmHg; pH VBG 7.43 (7.36-7.41)
[2025-04-30 22:57] LABS: Hematocrit (blood only) 45.3 % (42.0-52.0); Hemoglobin 14.9 g/dl (14.0-18.0); Immature Granulocytes # (auto) 0.04 K/uL (0.01-0.20); Immature Granulocytes % (auto) 0.3 %; Mean Corpuscular Hemoglobin 32.8 pg (25.0-34.0); Mean Corpuscular Volume 99.8 fL (80.0-100.0); Platelet Count 143 K/uL (130-400); RDW Standard Deviation 48.8 fL (36.4-46.3); Red Blood Count 4.54 M/uL (4.70-6.10); White Blood Count 12.00 K/ul (4.8-10.8)
[2025-04-30] MEDS: SODIUM CHLORIDE 0.9% 1,000 ML IV SCH (23:20)
[2025-04-30] MEDS: ACETAMINOPHEN 1,000 MG/100 ML VIAL IV STA (23:20)
[2025-04-30] MEDS: PIPERACILLIN/TAZOBACTAM 4.5 GM/100 ML BAG IV ONE (23:21)
[2025-04-30 23:35] LABS: Anion Gap 13 (3-11); Bilirubin,Total 0.8 mg/dl (0.2-1.0); Magnesium 2.1 mg/dl (1.7-2.4); Sodium 137 mmol/L (136-145); Total Protein 7.9 gm/dl (6.0-8.3)
[2025-04-30 23:36] LABS: Alanine Aminotransferase 12 U/L (7-52); Alkaline Phosphatase 93 U/L (34-104); Blood Urea Nitrogen 23 mg/dl (6-23); Calcium 9.2 mg/dl (8.6-10.3); Carbon Dioxide 25 mmol/L (21-32); Chloride 99 mmol/L (98-107); Glucose 106 mg/dl (70-99(Fasting)); Potassium 4.0 mmol/L (3.5-5.1)
[2025-04-30 23:39] LABS: Chlamydia pneumoniae PCR Not Detected (NotDetected); Coronavirus 229E PCR Not Detected (NotDetected); Coronavirus CoV-2 (COVID19)PCR Not Detected (NotDetected); Coronavirus HKU1 PCR Not Detected (NotDetected); Coronavirus NL63 PCR Not Detected (NotDetected); Coronavirus OC43PCR Not Detected (NotDetected); Human Metapneumovirus PCR Not Detected (NotDetected); Parainfluenza Virus 1 PCR Not Detected (NotDetected); Parainfluenza Virus 2 PCR Not Detected (NotDetected); Parainfluenza Virus 3 PCR Not Detected (NotDetected); Parainfluenza Virus 4 PCR Not Detected (NotDetected); Respiratory Syncytial VirusPCR Not Detected (NotDetected); Rhinovirus/Enterovirus PCR Not Detected (NotDetected)
--- NOTE | 2025-04-30 23:52 | CT Scan Report ---
Exam(s): CT HEAD Without Contrast EXAM: CT Head Without Intravenous Contrast CLINICAL HISTORY: Reason for exam: ams. TECHNIQUE: Axial computed tomography images of the head/brain without intravenous contrast. CTDI is 36.25 mGy and DLP is 625.8 mGy-cm. Automated exposure control was utilized for the study. A dose lowering technique was utilized adhering to the principles of ALARA. COMPARISON: 01/05/2023. FINDINGS: Brain: No acute intracranial hemorrhage. There is decreased attenuation within the white matter.. Ventricles: There is prominence of the ventricular system with deepening of the sulci consistent with cortical and central atrophy. Bones/joints: Unremarkable. No acute fracture. Soft tissues: Unremarkable. Sinuses: Unremarkable as visualized. No acute sinusitis. Mastoid air cells: Unremarkable as visualized. No mastoid effusion. IMPRESSION: Atrophy. Nonspecific white matter disease. Findings appears similar to previous exam. If further evaluation is clinically necessary, consider correlation with MRI Electronically signed by: Valeriano Sawyer MD 04/30/25 23:51 PM
--- NOTE | 2025-05-01 00:05 | XRay Report ---
Exam(s): XR CXR 1 VIEW EXAM: XR Chest, 1 View CLINICAL HISTORY: Reason for exam: Sepsis. TECHNIQUE: Frontal view of the chest. COMPARISON: 01/05/2023. FINDINGS: There is a poor inspiratory effort. Lungs: No consolidation. Pleural space: No pleural effusion is seen. No pneumothorax. Heart: Heart is normal in size.. Mediastinum: There is uncoiling of thoracic aorta.. Bones/joints: There are some degenerative changes in the spine. IMPRESSION: Poor inspiratory effort. No acute pulmonary disease. Electronically signed by: Valeriano Sawyer MD 05/01/25 00:03 AM
[2025-05-01 01:09] LABS: Appearance Urine Clear (Clear); Bacteria Urine Automated 4+ (None Seen); Cast Urine Automated 0-2 /lpf (0-2); Epithelial Cell Urine Auto 0-2 /hpf (0-2); Glucose Urine UA Negative (Negative); RBC Urine Automated 0-2 /hpf (0-2); WBC Urine Automated >50 /hpf (0-5)
--- NOTE | 2025-05-01 01:11 | History & Physical Report ---
Date of Service May 01, 2025 Assessment & Plan (1) Weakness: (2) BPH (benign prostatic hyperplasia): (3) Chronic stasis dermatitis: (4) Chronic venous insufficiency: (5) HTN (hypertension): (6) Dyslipidemia: (7) Coronary artery calcification: (8) Peripheral neuropathy: Plan Patient is an 84-year-old male who was admitted due to weakness and acute episode of confusion at home. Weakness // Ambulatory dysfunction Patient with ambulatory dysfunction at baseline (uses a walker sometimes), but noted acute worsening over the last 2 days with today being the peak of symptoms. Patient noted improvement in his symptoms after receiving NSS 1 L bolus and Tylenol in the ED, which suggests dehydration may be playing a role in current presentation Will admit to MedSurg Ordered LR 1 L bolus which is to be followed by LR at maintenance rate Will hold home triamterene/hydrochlorothiazide for now PT/OT consulted UTI Patient with episode of urinary incontinence on arrival to emergency department Patient endorses sensation of incomplete bladder emptying and urinary frequency chronically but had slight worsening over the last few days; possible BPH UA collected and suggestive of infection; Culture pending Since patient had episode of acute confusion at home, as well as worsening of urinary urgency/frequency with episode of incontinence in the emergency department, we will start ceftriaxone; status post Zosyn x 1 in the ED Ascending thoracic aortic aneurysm Stable; Measuring 5 cm on most recent chest CT (10/2023); [place] [facility] [place] pressure control as mentioned below HTN Continue home metoprolol, triamterene/hydrochlorothiazide held as mentioned above Dyslipidemia Continue home atorvastatin Peripheral neuropathy Continue home gabapentin and nortriptyline Dispo: MedSurg Fluids: NSS 1 L bolus and LR 1 L bolus in the ED; LR at maintenance rate after this Diet: Heart healthy, low-sodium VTE ppx: Lovenox Code Status: FULL History of Present Illness Chief Complaint: Weakness Primary Care Provider: Joshua Allen MD Patient is an 84-year-old male who comes to the emergency department due to no ticed weakness and acute confusion earlier in the afternoon. He has been taking care of his spouse for the last few months after she underwent an amputation procedure, but over the last 3 to 4 days, he has been feeling more weak and "out of it ". Earlier today, patient's had noted that he was more weak than usual and seemed to be a little confused. They contacted his son who recommended that they call the ambulance to go to the emergency department. Patient's son, who was at bedside, also states that when he came to see the patient, patient was confused and was not able to recall where he was or the year. Prior to this, patient had not been exhibiting any symptoms such as fevers, chills, chest pain, shortness of breath, dysuria, nausea/vomiting/diarrhea, bowel movement changes (has regular bowel movements), or any other systemic symptoms. Denies having any lightheadedness, dizziness, or near syncopal/syncopal episodes. Patient eats his usual 3 meals a day, but states that he is not very good at keeping up with oral hydration. ED course: Given NSS 1 L bolus x 1, Tylenol IV x 1, Zosyn x 1 Labs/Imaging: CBC with leukocytosis of 12 with neutrophilic predominance, hemoglobin of 14.9, platelets of 143. CMP without significant electrolyte abnormalities, creatinine 1.30, blood sugar of 106. Lactate of 1.5. Magnesium of 2.1. LFTs unremarkable. Troponin negative. Biofire negative. Pro-Caio of 0.08. Chest x-ray without acute findings. Head CT also without acute findings. Medical History: [Reviewed] Medications: [Reviewed] Surgical History: [Reviewed] Family history: [Reviewed] Allergies: [Reviewed] Social History: [Reviewed] Code Status: FULL Allergies Allergy/AdvReac Type Severity Reaction Status Date / Time doxycycline Allergy Intermediate Hives Verified 05/01/25 00:18 Home Medications Medication Instructions Recorded Confirmed Type docusate sodium 100 mg capsule 200 mg PO QAM 05/07/19 05/01/25 History aspirin 81 mg tablet,delayed 81 mg PO QAM 01/05/23 05/01/25 History release cyanocobalamin (vitamin B-12) 250 250 mcg PO QAM 01/30/24 05/01/25 History mcg tablet (Vitamin B-12) psyllium husk 0.4 gram capsule 0.4 g PO DAILY PRN Constipation 01/30/24 04/30/25 History (Metamucil) atorvastatin 20 mg tablet 20 mg PO QAM 04/30/25 05/01/25 History gabapentin 300 mg capsule 300 mg PO TID 04/30/25 05/01/25 History metoprolol succinate 25 mg 12.5 mg PO QAM 04/30/25 05/01/25 History tablet,extended release 24 hr nortriptyline 75 mg capsule 75 mg PO HS 04/30/25 05/01/25 History triamterene 37.5 1 cap PO QAM 04/30/25 05/01/25 History mg-hydrochlorothiazide 25 mg capsule Past Med/Surg History Problem List (Updated 05/01/25 @ 02:16 by Keren Bello PA-C) Acute UTI (Acute) BPH (benign prostatic hyperplasia) Weakness (Acute) Near syncope (Acute) Chronic venous insufficiency Chronic stasis dermatitis Status post left hip replacement Dyslipidemia HTN (hypertension) Coronary artery calcification [facility] [place] cardio Thoracic aortic aneurysm Under surveillance by [facility] cardio Echo 08/2023: Moderately dilated ascending aorta (4.9cm diameter per [facility] cardio 09/05/23 office visit note, "stable") Chest CT (10/2023): 5 cm ascending thoracic aortic aneurysm Medical History Osteoarthritis History of COVID-19 (12/2022) Peripheral neuropathy Pulmonary nodule Surgical History History of foot surgery History of colonoscopy History of oral surgery History of tonsillectomy and adenoidectomy Family History Father Acute myocardial infarction Lung cancer Colon cancer Uncle Acute myocardial infarction Mother Brain cancer Brother Hypertension Tremor Social History Smoking Status: Former smoker Tobacco Type: Cigarettes Second Hand Exposure: No; Do You Dip or Chew Tobacco: No; Tobacco Cessation Education Requested by Patient: No Hx Alcohol Use: Yes Alcohol type: beer and hard liquor Hx Substance Use: No Preferred Language: Israeli Communication Ability: Effective [employer] Required: No Beliefs That Will Affect Care: None marital status: Current Living Situation: Spouse Other Information That Helps Us Care for You: No Feels Safe at Home: Yes Safety Concerns: Feels Safe At This Time Assistive Devices: Cane and Glasses Review of Systems Review of Systems: As per HPI Physical Exam Physical Exam: GENERAL: Awake alert and oriented in all spheres, afebrile, calm, nontoxic, no acute distress HEAD: Atraumatic, normocephalic THROAT: Normal to visual inspection CHEST: Symmetric chest expansions with respirations CARDIO: Regular rate and rhythm murmurs or gallops appreciated PULMONARY: Clear to auscultation bilaterally, normal respiratory effort, no respiratory distress, breathing comfortably at room air GI: Soft, nontender, nondistended EXTREMITIES: No swelling in bilateral lower extremities or calf tenderness SKIN: Skin darkening and thickening marked in anterior aspect of bilateral legs consistent with history of chronic stasis dermatitis, no surrounding erythema/warmth/tenderness or noted wounds/lacerations. Results & Data Results & Data Vital Signs (Past 12 Hours) Vital Signs Temp Pulse Resp BP Pulse Ox O2 Del Method 04/30/25 23:39 84 24 109/70 94 04/30/25 23:02 88 22 119/81 95 04/30/25 22:35 87 04/30/25 22:28 89 20 95 Room Air 04/30/25 22:07 37.3 C 89 20 138/94 95 Room Air Code Status & VTE Plan VTE Prophylaxis Plan VTE Prophylaxis will be ordered: Yes Supervising Physician Co-Signing Physician Notes Attending addendum: I have physically seen this patient, have supervised the medical residents activities, and agree with the H&P unless as otherwise noted. Assessment and Plan: The patient is an 84-year-old male with a past medical history including BPH, chronic venous insufficiency, dyslipidemia, hypertension, coronary artery calcification, thoracic aortic aneurysm, B12 deficiency, and peripheral neuropathy. He was brought to the emergency department after having progressive weakness over the past few days, feeling not like himself during this interval, and is reported by family. Earlier in the day, he became so weak that he had to gradually be lowered down to his chair. His family called emergency medical services, who came to his home, and then brought him to the ED for assessment. CT scan of head without contrast showed small vessel disease without acute change, BioFire testing was negative, chest x-ray was negative, EKG without acute findings. The patient did have temperature of 99.9. Urinalysis and urine culture were ultimately collected and sent, and were suggestive of urinary tract infection. The patient was then referred for evaluation for admission. Sepsis due to UTI/BPH with LUTS- Patient did have a significant episode of urinary incontinence, urinating on the floor in the emergency department room shortly after arrival. He does report a sense of incomplete bladder emptying, and chronic urinary frequency, but has worsened over the past few days. From the ED he was given normal saline 1 L bolus, Tylenol 1 g IV, and Zosyn 4.5 g IV Follow urine culture sensitivity Ceftriaxone 2 g IV daily Weakness/ambulatory dysfunction/controlled fall at home- Likely combination of progressive generalized weakness, aggravated by sepsis due to UTI Admit to MedSurg 1 L LR bolus, then LR at 100 mL/h Hold triamterene/HCTZ Consult PT/OT Hypertension- Continue metoprolol Holding triamterene/HCTZ as noted Peripheral neuropathy- Continue gabapentin and nortriptyline Dyslipidemia- Continue atorvastatin Resident Activity Tracking Resident Involvement: Resident Care Provided Care Provided: Adult Hospital Medicine (5) HTN (hypertension) Hypertension type: primary hypertension Qualified Code(s): I10 - Essential (primary) hypertension
[2025-05-01] MEDS ORDERED: POLYETHYLENE (MIRALAX) 17 GM PACK PO PRN (01:57)
[2025-05-01] MEDS: LACTATED RINGER'S 1,000 ML IV ONE (01:57)
[2025-05-01] MEDS ORDERED: ONDANSETRON INJ 2 MG/ML 2 ML VIAL IV PRN (01:57)
[2025-05-01] MEDS ORDERED: MELATONIN 3 MG TAB PO PRN (01:57)
[2025-05-01] MEDS: Patient's HEIGHT &/or WEIGHT Needed STA (02:13)
[2025-05-01] MEDS: LACTATED RINGER'S 1,000 ML IV SCH (02:13)
--- NOTE | 2025-05-01 03:26 | Billing Data ---
Date of Service May 01, 2025 Coding Level of Care Code 52780 INT INP/OBS CARE
[2025-05-01 07:19] VITALS: RESP 16
[2025-05-01] MEDS: DOCUSATE SODIUM 100 MG CAP PO SCH (08:30)
[2025-05-01] MEDS: GABAPENTIN 300 MG CAP PO SCH (08:31)
[2025-05-01] MEDS: ATORVASTATIN 20 MG TAB PO SCH (08:31)
[2025-05-01] MEDS: cefTRIAXone SODIUM 2,000 MG/50 ML BAG IV SCH (08:31)
[2025-05-01] MEDS: ASPIRIN 81 MG ECTAB PO SCH (08:31)
[2025-05-01] MEDS: METOPROLOL SUCC 25MG EXT REL TAB PO SCH (08:31)
[2025-05-01] MEDS: ENOXAPARIN INJ 40 MG/0.4 ML SYR SQ SCH (08:32)
[2025-05-01] MEDS: ACETAMINOPHEN 325 MG TAB PO PRN (08:35)
[2025-05-01] MEDS ORDERED: cefTRIAXone SODIUM 1,000 MG/50 ML BAG IV SCH (09:00)
[2025-05-01 11:29] LABS: Hematocrit (blood only) 37.3 % (42.0-52.0); Hemoglobin 12.4 g/dl (14.0-18.0); Immature Granulocytes # (auto) 0.05 K/uL (0.01-0.20); Immature Granulocytes % (auto) 0.5 %; Mean Corpuscular Hemoglobin 33.0 pg (25.0-34.0); Mean Corpuscular Volume 99.2 fL (80.0-100.0); Platelet Count 118 K/uL (130-400); RDW Standard Deviation 48.4 fL (36.4-46.3); Red Blood Count 3.76 M/uL (4.70-6.10); White Blood Count 10.48 K/ul (4.8-10.8)
[2025-05-01 11:48] LABS: Anion Gap 6.0 (3-11); Blood Urea Nitrogen 21.0 mg/dl (6-23); Calcium 7.9 mg/dl (8.6-10.3); Carbon Dioxide 27.0 mmol/L (21-32); Chloride 103.0 mmol/L (98-107); Creatinine Clr Calc Pharmacy 59.3 ml/min; Glucose 128.0 mg/dl (70-99(Fasting)); Magnesium 1.8 mg/dl (1.7-2.4); Potassium 3.5 mmol/L (3.5-5.1); Sodium 136.0 mmol/L (136-145)
--- NOTE | 2025-05-01 17:39 | History & Physical Bridge Note ---
Date of Service May 01, 2025 History & Physical Bridge Note I have examined the patient, reviewed the History & Physical and in the interval since the performance of the History & Physical I have noted the following changes of clinical significance: Patient awake alert and oriented x 3. He remembers me as well as multiple personal details about December from an admission from 2-1/2 years prior therefore his mentation is completely back to normal. He denies any further urinary symptoms. He is eating and drinking, has no concerns. I discussed his care with his [id number] at the bedside. Vitals reviewed Gen: AAOx3, NAD HEENT: Anicteric sclerae, EOMI CV: RRR no mgr nl S1S2 Pulm: CTAB no wcr Abd: +BS soft NT ND no masses or hernias Ext: No edema, 2+ DP pulses Skin: Bilateral legs with ichthyosis, chronic venous stasis changes with purplish discoloration of legs and 1+ chronic woody edema Neuro: Full strength throughout CBC, BMP, blood cultures, urine culture reviewed This patient is an 84-year-old male with history of BPH, chronic venous stasis, HTN, CAD, TAA, B12 deficiency, peripheral neuropathy, HLD, who is admitted with acute metabolic encephalopathy and UTI. Much improved-mentation back to normal. Awaiting results of urine culture - Continue ceftriaxone - Add on triamcinolone cream to chronic venous stasis rash on legs which she uses at home - Hopefully discharge on 05/02 if urine culture results back or could send home on empiric third-generation cephalosporin
[2025-05-01] MEDS: NORTRIPTYLINE HCL 25 MG CAP PO SCH (22:28)
[2025-05-01] MEDS: TRIAMCINOLONE ACET 0.025% CR 15 GM TUBE EXT SCH (22:28)
[2025-05-01 23:11] VITALS: O2SAT 95
[2025-05-02 08:00] VITALS: BP 117/69; PULSE 70; TEMP 98.6
[2025-05-02] MEDS: CYANOCOBALAMIN (B-12) 500 MCG TABLET PO SCH (09:04)
[2025-05-02 09:41] LABS: Hematocrit (blood only) 39.0 % (42.0-52.0); Hemoglobin 12.9 g/dl (14.0-18.0); Immature Granulocytes # (auto) 0.02 K/uL (0.01-0.20); Immature Granulocytes % (auto) 0.2 %; Mean Corpuscular Hemoglobin 33.2 pg (25.0-34.0); Mean Corpuscular Volume 100.3 fL (80.0-100.0); Platelet Count 123 K/uL (130-400); RDW Standard Deviation 49.6 fL (36.4-46.3); Red Blood Count 3.89 M/uL (4.70-6.10); White Blood Count 8.44 K/ul (4.8-10.8)
[2025-05-02 10:04] LABS: Alanine Aminotransferase 9.0 U/L (7-52); Albumin Globulin Ratio 1.0 (0.9-2); Alkaline Phosphatase 61.0 U/L (34-104); Anion Gap 5.0 (3-11); Bilirubin,Total 0.8 mg/dl (0.2-1.0); Blood Urea Nitrogen 19.0 mg/dl (6-23); Calcium 8.1 mg/dl (8.6-10.3); Carbon Dioxide 31.0 mmol/L (21-32); Chloride 101.0 mmol/L (98-107); Creatinine Clr Calc Pharmacy 57.2 ml/min; Globulin 2.9 gm/dl (2.5-4.0); Glucose 131.0 mg/dl (70-99(Fasting)); Potassium 3.5 mmol/L (3.5-5.1); Sodium 137.0 mmol/L (136-145); Total Protein 5.8 gm/dl (6.0-8.3)
--- NOTE | 2025-05-02 13:41 | Discharge Summary ---
Discharge Summary Date of Service May 02, 2025 Principal Dx & Hospital Course #1 = Principal Diagnosis (1) BPH (benign prostatic hyperplasia): (2) Chronic stasis dermatitis: (3) Acute UTI: (4) Acute metabolic encephalopathy: Plan Patient is an 84-year-old male with a history of HTN, TIA, BPH, HLD, peripheral neuropathy, who was admitted due to weakness and acute episode of confusion at home-found to have acute UTI #Acute metabolic encephalopathy/generalized weakness-secondary to UTI and now completely resolved. Seen by PT/OT and good for home with home health #UTI Patient with episode of urinary incontinence and with urinary urgency, low-grade fever on admission, with metabolic encephalopathy. Has chronic urinary frequency and likely has BPH. UA abnormal here and urine culture growing E. coli with sensitivities pending at the time of discharge. Was treated with ceftriaxone and had significant improvement - Discharge to home on cefdinir 300 mg p.o. twice daily x 5 more days for total of 7 - Follow-up urine culture sensitivities after discharge and if resistant to ceftriaxone for some reason, would call to change antibiotic -Follow-up with PCP and/or referral to urology for suspected enlarged prostate #Ascending thoracic aortic aneurysm Stable; Measuring 5 cm on most recent chest CT (10/2023); previously followed with Dr. Brandt in [facility] [place] and has decided to no longer perform surveillance Blood pressure control as mentioned below #HTN Continue home metoprolol, triamterene/hydrochlorothiazide #Dyslipidemia Continue home atorvastatin #Peripheral neuropathy Continue home gabapentin and nortriptyline #Venous stasis dermatitis-continue triamcinolone cream DVT prophylaxis-Lovenox Disposition-stable for discharge to home Notes For Next Care Provider Consider referral to urology for enlarged prostate Follow-up urine culture sensitivities after discharge Medication Changes From Visit Added cefdinir 3 9 mg p.o. twice daily x 5 more days Admission HPI Per Admitting Provider Patient is an 84-year-old male who comes to the emergency department due to noticed weakness and acute confusion earlier in the afternoon. He has been taking care of his spouse for the last few months after she underwent an amputation procedure, but over the last 3 to 4 days, he has been feeling more weak and "out of it ". Earlier today, patient's had noted that he was more weak than usual and seemed to be a little confused. They contacted his son who recommended that they call the ambulance to go to the emergency department. Patient's son, who was at bedside, also states that when he came to see the patient, patient was confused and was not able to recall where he was or the year. Prior to this, patient had not been exhibiting any symptoms such as fevers, chills, chest pain, shortness of breath, dysuria, nausea/vomiting/diarrhea, bowel movement changes (has regular bowel movements), or any other systemic symptoms. Denies having any lightheadedness, dizziness, or near syncopal/syncopal episodes. Patient eats his usual 3 meals a day, but states that he is not very good at keeping up with oral hydration. ED course: Given NSS 1 L bolus x 1, Tylenol IV x 1, Zosyn x 1 Labs/Imaging: CBC with leukocytosis of 12 with neutrophilic predominance, hemoglobin of 14.9, platelets of 143. CMP without significant electrolyte abnormalities, creatinine 1.30, blood sugar of 106. Lactate of 1.5. Magnesium of 2.1. LFTs unremarkable. Troponin negative. Biofire negative. Pro-Caio of 0.08. Chest x-ray without acute findings. Head CT also without acute findings. Medical History: [Reviewed] Medications: [Reviewed] Surgical History: [Reviewed] Family history: [Reviewed] Allergies: [Reviewed] Social History: [Reviewed] Code Status: FULL Discharge Exam Constitutional WD/WN, vitals as above Neck trachea midline, no thyromegaly Respiratory normal respiratory effort, lungs clear to auscultation Cardiovascular RRR, no murmur, no edema Chest (Breasts) Chest: normal inspection of chest Gastrointestinal (Abdomen) normal bowel sounds, soft, nontender, no hepatosplenomegaly Musculoskeletal Extremities: extremities normal to inspection; no cyanosis and no clubbing Neurologic moves all extremities and awake; no focal motor deficits Psychiatric A+Ox3, euthymic affect Discharge Plan Discharge Items Patient Disposition: Home - Home Health Services Reason For Visit: WEAKNESS Discharge Diagnosis: UTI Acute encephalopathy-resolved Condition on Discharge: Good Activity: As commented below Bathing: No limitations Exercise/Sports: Gradually increase as tolerated Exercise Comment: With home PT/OT Non-emergency contact: Primary Care Provider Call non-emergency contact if: you have any medication questions and your symptoms worsen Follow-up/Referrals: Joshua Allen MD [Primary Care Provider] - (Follow-up within 1-2 weeks) Diet: Heart Healthy Addtl Attending Provider Instructions: Please finish out the course of antibiotics with cefdinir 300 mg twice a day for 5 more days for your urinary infection. Pending Studies at Discharge: Yes (Final urine culture sensitivities, final blood cultures-no growth to date) Stand-Alone Forms: My [facility] Medications and DC Order Prescriptions: New cefdinir 300 mg capsule 300 mg PO BID 5 Days Qty: 10 0RF triamcinolone acetonide 0.025 % Cream 1 applic EXT BID Qty: 15 0RF Rx Instructions: Please give tube from hospital Continued docusate sodium 100 mg capsule 200 mg PO QAM aspirin 81 mg Tablet,Delayed Release (Dr/Ec) 81 mg PO QAM cyanocobalamin (vitamin B-12) [Vitamin B-12] 250 mcg Tablet 250 mcg PO QAM psyllium husk [Metamucil] 0.4 gram Capsule 0.4 g PO DAILY PRN (Reason: Constipation) atorvastatin 20 mg tablet 20 mg PO QAM metoprolol succinate 25 mg tablet extended release 24 hr 12.5 mg PO QAM Rx Instructions: Take 1/2 tablet by mouth every day triamterene-hydrochlorothiazid 37.5-25 mg capsule 1 cap PO QAM nortriptyline 75 mg capsule 75 mg PO HS Rx Instructions: TAKE 1 CAPSULE BY MOUTH 2-3 HOURS BEFORE BEDTIME gabapentin 300 mg capsule 300 mg PO TID Discharge Orders: Discharge Order (Routine); Ordered 05/02/25 Ordered By: Gregoria Melendez Admission Data Admit Date/Time: 05/01/25 01:09 Attending Provider: Gregoria Melendez Admit Provider: Tiara Carvalho Primary Care Provider: Joshua Allen Other Providers: [facility] Stay Data Consultations 05/01/25 00:13 ED Decision to Admit Stat Diagnostic Imagining Performed 04/30/25 22:07 CT head/brain wo con Stat Pending Results Patient Have Any Pending Studies at Discharge: Yes (Final urine culture sensitivities, final blood cultures-no growth to date) Discharge Instructions Given to Patient (Per Discharging Provider) Please finish out the course of antibiotics with cefdinir 300 mg twice a day for 5 more days for your urinary infection. Total Time Total Time Spent Total Time Spent (In Minutes): 35 minutes Total Time Includes: Examination of the Patient, Discharge Planning and Medication Reconciliation Coding Level of Care Code 02649 INP/OBS DISCH >30 MIN Diagnoses BPH (benign prostatic hyperplasia) N40.0 Chronic stasis dermatitis I87.2 Acute UTI N39.0 Acute metabolic encephalopathy G93.41
--- NOTE | 2025-05-04 06:32 | Electrocardiogram Report ---
Test Reason : Blood Pressure : */* mmHG Vent. Rate : 87 BPM Atrial Rate : 87 BPM P-R Int : 208 ms QRS Dur : 116 ms QT Int : 356 ms P-R-T Axes : -22 -10 -14 degrees QTcB Int : 428 ms Normal sinus rhythm Inferior infarct , age undetermined Poor R wave progression, consider anterior GA vs. lead placement vs. LVH Abnormal ECG When compared with ECG of 06-Feb-2024 15:33, T wave inversion now evident in Inferior leads Confirmed by Lucio Bustillo ([id number]) on 05/04/2025 6:32:03 AM Referred By: REFERRED SELF Confirmed By: Lucio Bustillo
== END 2025-05-02 15:16 | disposition home health service (06) | DRG 71 ==
LOC: ED 21:59 → 3N 05-01 01:09 → INTOOBSV 05-01 01:09 → SUATTDRO 05-01 01:09 → 3N 05-01 01:38